=== PATIENT | male | born 1985 | race Hispanic/Latino ===

== ENCOUNTER 2018-07-24 21:59 | Emergency (ER) | payer OTHER, SELFPAY ==
[2018-07-24] MEDS ORDERED: KETOROLAC 30 MG/ML INJ ONE (22:57)
[2018-07-24] MEDS ORDERED: NA CHLORIDE 0.9% 1,000 ML ONE (22:57)
[2018-07-24 23:17] LABS: Absolute Lymphocytes (CBC) 4.2 K/uL (0.7-4.9); Absolute Neutrophil 7.5 K/uL (1.8-8.0); Basophils % 0.7 % (0-1.3); Eosinophils % 1.5 % (0-4.4); Hematocrit 45.8 % (39.6-49.0); Lymphocytes % 32.1 % (15.3-44.8); MCH 31.2 pg (27.0-35.0); MCV 93.6 fL (80-100); MPV 9.2 fL (7.6-11.3); RBC Red Blood Cell Count 4.89 M/uL (4.33-5.43)
[2018-07-24 23:17] LABS: Urine Blood TRACE (NEG); Urine Glucose NEGATIVE (NEG); Urine Protein NEGATIVE (NEG)
[2018-07-24 23:33] LABS: ALT/SGPT 48 U/L (12-78); AST/SGOT 21 U/L (15-37); Albumin 3.3 g/dL (3.4-5.0); Alkaline Phosphatase 103 U/L (45-117); Amylase Level 32 U/L (25-115); BUN Blood Urea Nitrogen 14 mg/dL (7-18); Bicarbonate 29 mmol/L (21-32); Bilirubin Direct < 0.1 mg/dL (0-0.2); Bilirubin Total 0.3 mg/dL (0.2-1.0); Glucose Level 103 mg/dL (74-106); Lipase 113 U/L (73-393); Potassium 3.7 mmol/L (3.5-5.1); Protein, Total 7.7 g/dL (6.4-8.2); Sodium Level 139 mmol/L (136-145)
[2018-07-25] MEDS ORDERED: PANTOPRAZOLE 40 MG INJ ONE (02:15)
--- NOTE | 2018-07-25 04:36 | ER ---
Nurse's Notes [facility] Name: Chai Hartley Age: 32 yrs Sex: Male : 1985 Arrival Date: 07/24/2018 Time: 22:05 Bed 19 Private MD: Diagnosis: Upper abdominal pain, unspecified Presentation: 07/24 22:18 Presenting complaint: Patient states: epigastric pain, intermittent since Wednesday, sr5 radiates around abdomen to back. Denies N/V/fever. Equal unlabored resp, skin warm/dry/nc. Denies PMH. LEFT BP 155/108, RIGHT BP 154/108. Transition of care: patient was not received from another setting of care. Onset of symptoms was July 22, 2018. Risk Assessment: Do you want to hurt yourself or someone else? Patient reports no desire to harm self or others. Initial Sepsis Screen: Does the patient meet any 2 criteria? No. Patient's initial sepsis screen is negative. Does the patient have a suspected source of infection? No. Patient's initial sepsis screen is negative. Care prior to arrival: reports taking several OTC meds. 22:18 Method Of Arrival: Ambulatory sr5 22:18 Acuity: MEDINA 3 sr5 Triage Assessment: 22:20 General: Appears uncomfortable, Behavior is calm, cooperative. Pain: Complains of pain sr5 in epigastric area Pain radiates to back, right upper quadrant and left upper quadrant. Neuro: No deficits noted. Cardiovascular: Capillary refill is brisk in bilateral fingers Patient's skin is warm and dry. Respiratory: Respiratory effort is even, unlabored, Respiratory pattern is regular, symmetrical. GI: Reports upper abdominal pain. Historical: - Allergies: 22:20 No Known Allergies; sr5 - Home Meds: 22:20 None [Active]; sr5 - PMHx: 22:20 None; sr5 - PSHx: 22:20 None; sr5 - Immunization history:: Adult Immunizations up to date. - Social history:: Smoking status: Patient uses tobacco products, denies chronic smoking, but will smoke occasionally. - Ebola Screening: : Patient negative for fever greater than or equal to 101.5 degrees Fahrenheit, and additional compatible Ebola Virus Disease symptoms. Screenin:11 Abuse screen: Denies threats or abuse. Denies injuries from another. Nutritional lp1 screening: No deficits noted. Tuberculosis screening: No symptoms or risk factors identified. Fall Risk None identified. Assessment: 22:30 General: Appears uncomfortable, Behavior is appropriate for age. Pain: Complains of lp1 pain in epigastric area Pain currently is 5 out of 10 on a pain scale. Quality of pain is described as sharp. Neuro: Level of Consciousness is awake, alert, obeys commands. Cardiovascular: Patient's skin is warm and dry. Respiratory: Respiratory effort is even, unlabored. GI: Abdomen is non-distended, Bowel sounds present X 4 quads. Abdomen is tender to palpation in epigastric area Reports upper abdominal pain. : Denies burning with urination. EENT: No signs and/or symptoms were reported regarding the EENT system. Derm: Skin is pink, warm \T\ dry. Musculoskeletal: Circulation, motion, and sensation intact. 23:30 Reassessment: Patient appears in no apparent distress at this time. Patient and/or lp1 family updated on plan of care and expected duration. Pain level reassessed. Patient is alert, oriented x 3, equal unlabored respirations, skin warm/dry/pink. 07/25 00:30 Reassessment: Patient appears in no apparent distress at this time. No changes from lp1 previously documented assessment. Patient and/or family updated on plan of care and expected duration. Pain level reassessed. 01:27 Reassessment: Patient appears in no apparent distress at this time. Patient is alert, lp1 oriented x 3, equal unlabored respirations, skin warm/dry/pink. Patient aware of waiting to be taken to CT. 02:16 Reassessment: patient states sharp pain to epigastric area at this time, provider lp1 notified; Patient aware of continuing to wait to be taken for CT of abdomen. 04:43 Reassessment: Patient appears in no apparent distress at this time. Patient is alert, lp1 oriented x 3, equal unlabored respirations, skin warm/dry/pink. Vital Signs: 07/24 22:20 BP 155 / 108; Pulse 67; Resp 14; Temp 98.8; Pulse Ox 98% on R/A; Weight 95.25 kg; sr5 Height 5 ft. 6 in. (167.64 cm); 23:00 BP 123 / 94; Pulse 69; Resp 16; Pulse Ox 96% on R/A; lp1 23:45 BP 136 / 92; Pulse 79; Resp 16; Pulse Ox 99% on R/A; lp1 07/25 01:00 BP 141 / 97; Pulse 66; Resp 16; Pulse Ox 97% on R/A; lp1 02:16 BP 114 / 69; Pulse 67; Resp 16; Pulse Ox 99% on R/A; lp1 04:43 BP 132 / 98; Pulse 76; Resp 16; Pulse Ox 99% on R/A; lp1 07/24 22:20 Body Mass Index 33.89 (95.25 kg, 167.64 cm) sr5 ED Course: 07/24 22:05 Patient arrived in ED. es 22:15 [facility] kb 22:15 Eugenio Diggs MD is Attending Physician. kb 22:20 Triage completed. sr5 22:20 Arm band placed on. sr5 22:45 Inserted saline lock: 20 gauge in right antecubital area, using aseptic technique. mw2 Blood collected. 22:51 Imelda Castro RN is Primary Nurse. lp1 23:12 Patient has correct armband on for positive identification. Placed in gown. Bed in low lp1 position. Pulse ox on. NIBP on. 23:46 US Abdomen Limited In Process Unspecified. EDMS 07/25 00:14 No provider procedures requiring assistance completed. lp1 03:[address] via wheelchair. lp1 03:31 CT completed. Patient tolerated procedure well. Patient moved back from CT. kw1 03:33 CT Abd/Pelvis - W/Contrast In Process Unspecified. EDMS 04:36 Tree Encinas MD is Referral Physician. rn 04:46 IV discontinued, No redness/swelling at site. Pressure dressing applied. lp1 Administered Medications: 07/24 22:58 Drug: NS 0.9% 1000 ml Route: IV; Rate: 1000 ml; Site: right antecubital; lp1 07/25 00:30 Follow up: IV Status: Completed infusion; IV Intake: 1000ml lp1 07/24 22:58 Drug: TORadol 30 mg Route: IVP; Site: right antecubital; lp1 23:30 Follow up: Response: No adverse reaction lp1 07/25 02:13 Drug: ProTONIX 40 mg Route: IVP; Site: right antecubital; lp1 04:47 Follow up: Response: No adverse reaction lp1 Intake: 00:30 IV: 1000ml; Total: 1000ml. lp1 Outcome: 04:36 Discharge ordered by . rn 04:46 Discharged to home ambulatory, with significant other. lp1 04:46 Condition: good 04:46 Discharge instructions given to patient, significant other, Instructed on discharge instructions, follow up and referral plans. medication usage, Demonstrated understanding of instructions, follow-up care, medications, Prescriptions given X 3. 04:47 Patient left the ED. lp1 Signatures: Dispatcher [employer] EDMS Sylvia Martins, FRUIT II FARMWORKER-C FRUIT II FARMWORKER-Ckb Karoline Bullard Roman, MD MD rn Pena, Laura RN RN lp1 Eliezer Alexander RN RN sr5 Lavern Castañeda 1 Karina Bernal 2
--- NOTE | 2018-07-25 04:36 | EDPHYS ---
Physician Documentation [facility] Name: Chai Hartley Age: 32 yrs Sex: Male : 1985 Arrival Date: 07/24/2018 Time: 22:05 Bed 19 Private MD: ED Physician Eugenio Diggs HPI: 07/24 23:11 This 32 yrs old Male presents to ER via Ambulatory with complaints of Abdominal Pain. kb 23:11 The patient presents with abdominal pain in the upper abdomen. Onset: The kb symptoms/episode began/occurred 3 day(s) ago. The symptoms radiate to right back. Associated signs and symptoms: none. The symptoms are described as intermittent. Modifying factors: The symptoms are alleviated by nothing, the symptoms are aggravated by food. Severity of pain: At its worst the pain was moderate in the emergency department the pain is unchanged. The patient has not experienced similar symptoms in the past. The patient has not recently seen a physician. Historical: - Allergies: 22:20 No Known Allergies; sr5 - Home Meds: 22:20 None [Active]; sr5 - PMHx: 22:20 None; sr5 - PSHx: 22:20 None; sr5 - Immunization history:: Adult Immunizations up to date. - Social history:: Smoking status: Patient uses tobacco products, denies chronic smoking, but will smoke occasionally. - Ebola Screening: : Patient negative for fever greater than or equal to 101.5 degrees Fahrenheit, and additional compatible Ebola Virus Disease symptoms. ROS: 23:11 Constitutional: Negative for fever, chills, and weight loss, ENT: Negative for injury, kb pain, and discharge, Neck: Negative for injury, pain, and swelling, Cardiovascular: Negative for chest pain, palpitations, and edema, Respiratory: Negative for shortness of breath, cough, wheezing, and pleuritic chest pain, Back: Negative for injury and pain, : Negative for injury, bleeding, discharge, and swelling, MS/Extremity: Negative for injury and deformity, Skin: Negative for injury, rash, and discoloration, Neuro: Negative for headache, weakness, numbness, tingling, and seizure. 23:11 Abdomen/GI: Positive for abdominal pain, Negative for nausea, vomiting, and diarrhea, constipation, abdominal cramps, abdominal distension, anorexia. Exam: 23:11 Constitutional: This is a well developed, well nourished patient who is awake, alert, kb and in no acute distress. Head/Face: Normocephalic, atraumatic. Chest/axilla: Normal chest wall appearance and motion. Nontender with no deformity. No lesions are appreciated. Cardiovascular: Regular rate and rhythm with a normal S1 and S2. No gallops, murmurs, or rubs. Normal PMI, no JVD. No pulse deficits. Respiratory: Lungs have equal breath sounds bilaterally, clear to auscultation and percussion. No rales, rhonchi or wheezes noted. No increased work of breathing, no retractions or nasal flaring. Back: No spinal tenderness. No costovertebral tenderness. Full range of motion. Skin: Warm, dry with normal turgor. Normal color with no rashes, no lesions, and no evidence of cellulitis. MS/ Extremity: Pulses equal, no cyanosis. Neurovascular intact. Full, normal range of motion. Neuro: Awake and alert, GCS 15, oriented to person, place, time, and situation. Cranial nerves II-XII grossly intact. Motor strength 5/5 in all extremities. Sensory grossly intact. Cerebellar exam normal. Normal gait. 23:11 Abdomen/GI: Inspection: abdomen appears normal, Bowel sounds: normal, in all quadrants, Palpation: soft, in all quadrants, moderate abdominal tenderness, in the right upper quadrant. Vital Signs: 22:20 BP 155 / 108; Pulse 67; Resp 14; Temp 98.8; Pulse Ox 98% on R/A; Weight 95.25 kg; sr5 Height 5 ft. 6 in. (167.64 cm); 23:00 BP 123 / 94; Pulse 69; Resp 16; Pulse Ox 96% on R/A; lp1 23:45 BP 136 / 92; Pulse 79; Resp 16; Pulse Ox 99% on R/A; lp1 07/25 01:00 BP 141 / 97; Pulse 66; Resp 16; Pulse Ox 97% on R/A; lp1 02:16 BP 114 / 69; Pulse 67; Resp 16; Pulse Ox 99% on R/A; lp1 04:43 BP 132 / 98; Pulse 76; Resp 16; Pulse Ox 99% on R/A; lp1 07/24 22:20 Body Mass Index 33.89 (95.25 kg, 167.64 cm) sr5 MDM: 07/24 22:15 Patient medically screened. kb 23:11 Data reviewed: vital signs, nurses notes. Data interpreted: Pulse oximetry: on room air kb is 96 %. Interpretation: normal. 07/25 01:58 Counseling: I had a detailed discussion with the patient and/or guardian regarding: the kb historical points, exam findings, and any diagnostic results supporting the discharge/admit diagnosis, lab results, radiology results, the need for outpatient follow up, a family practitioner, to return to the emergency department if symptoms worsen or persist or if there are any questions or concerns that arise at home. 07/24 22:28 Order name: Amylase, Serum; Complete Time: 23:33 kb 07/24 22:28 Order name: Basic Metabolic Panel; Complete Time: 23:33 kb 07/24 22:28 Order name: CBC with Diff; Complete Time: 23:23 kb 07/24 22:28 Order name: Hepatic Function; Complete Time: 23:33 kb 07/24 22:28 Order name: Lipase; Complete Time: 23:33 kb 07/24 22:59 Order name: Urine Dipstick--Ancillary (enter results) mt 07/24 22:28 Order name: IV Saline Lock; Complete Time: 22:53 kb 07/24 22:28 Order name: Labs collected and sent; Complete Time: 22:53 kb 07/24 22:28 Order name: US Abdomen Limited 07/24 23:00 Order name: Urine Dipstick-Ancillary; Complete Time: 23:18 EDMS 07/25 00:13 Order name: CT Abd/Pelvis - W/Contrast 07/24 22:28 Order name: Urine Dipstick-Ancillary (obtain specimen); Complete Time: 22:53 kb Administered Medications: 07/24 22:58 Drug: NS 0.9% 1000 ml Route: IV; Rate: 1000 ml; Site: right antecubital; lp1 07/25 00:30 Follow up: IV Status: Completed infusion; IV Intake: 1000ml [facility] 07/24 22:58 Drug: TORadol 30 mg Route: IVP; Site: right antecubital; lp1 23:30 Follow up: Response: No adverse reaction 1 07/25 02:13 Drug: ProTONIX 40 mg Route: IVP; Site: right antecubital; lp1 04:47 Follow up: Response: No adverse reaction lp1 Disposition: 04:34 Co-signature as Attending Physician, Eugenio Diggs MD. rn 04:[address] scan results with patient and , likely combination of fatty rn liver/gastritis/possible pancreatitis although lipase normal, gallbladder u/s normal. REcommend f/u with GI, antacids, liquid diet, and return precautions given and understood.. Disposition: 07/25/18 04:36 Discharged to Home. Impression: Upper abdominal pain, unspecified. - Condition is Stable. - Discharge Instructions: Abdominal Pain, Adult, [id number]. - Prescriptions for Bentyl 20 mg Oral Tablet - take 1 tablet by ORAL route every 6 hours As needed; 20 tablet. Zofran 4 mg Oral Tablet - take 1 tablet by ORAL route every 8 hours As needed; 20 tablet. Tylenol- Codeine #3 300-30 mg Oral Tablet - take 1 tablet by ORAL route every 6 hours As needed; 15 tablet. - Medication Reconciliation Form, Thank You Letter, Antibiotic Education, Prescription Opioid Use form. - Follow up: Emergency Department; When: As needed; Reason: Worsening of condition. Follow up: Tree Encinas MD; When: 5 - 6 days; Reason: Recheck today's complaints, Re-evaluation by your physician. Signatures: Dispatcher [employer] EDMS Sylvia Martins, TUFT MACHINE OPERATOR-C TUFT MACHINE OPERATOR-Ckb Eugenio Diggs MD MD rn Pena, Laura, RN RN lp1 Resecker, Eliezer RN RN sr5 Corrections: (The following items were deleted from the chart) 04:47 04:36 07/25/2018 04:36 Discharged to Home. Impression: Upper abdominal pain, lp1 unspecified. Condition is Stable. Discharge Instructions: Abdominal Pain, Adult, Tare-ee-Rldy. Prescriptions for Bentyl 20 mg Oral Tablet - take 1 tablet by ORAL route every 6 hours As needed; 20 tablet, Zofran 4 mg Oral Tablet - take 1 tablet by ORAL route every 6 hours As needed; 20 tablet. and Forms are Medication Reconciliation Form, Thank You Letter, Antibiotic Education, Prescription Opioid Use. Follow up: Emergency Department; When: As needed; Reason: Worsening of condition. Follow up: Tree Encinas; When: 5 - 6 days; Reason: Recheck today's complaints, Re-evaluation by your physician. rn
--- NOTE | 2018-07-25 06:48 | RAD REPORT ---
EXAM DESCRIPTION: US - Abdomen Exam Limited - 07/24/2018 11:46 pm CLINICAL HISTORY: Abdominal pain, right upper quadrant pain COMPARISON: None. FINDINGS: No gallstones, sludge or other abnormalities within the gallbladder lumen. There is no wal l thickening or pericholecystic fluid. Gallbladder is partially contracted which accentuates wall thi ckness. No common duct stone or biliary tree dilatation identified. IMPRESSION: Normal gallbladder and biliary tree ultrasound.
--- NOTE | 2018-07-25 08:44 | RAD REPORT ---
EXAM DESCRIPTION: CT - Abdomen Pelvis W Contrast - 07/25/2018 5:44 am CLINICAL HISTORY: Abdominal pain, epigastric pain A preliminary report was provided at the time of the study and reviewed prior to final report. COMPARISON: None. TECHNIQUE: Biphasic, helical CT imaging of the abdomen and pelvis was performed following 100 ml non -ionic IV contrast. Oral contrast was given. All CT scans are performed using dose optimization technique as appropriate and may include automated exposure control or mA/KV adjustment according to patient size. FINDINGS: No suspicious findings in the lung bases. Liver size is normal. There is a benign-appearing calcification in the inferolateral right lobe. In t he central and superior right upper lobe there are geographic areas of decreased attenuation. No disp lacement of vasculature. This is most likely a geographic fatty infiltration of the liver. No acute s plenic finding. Small accessory splenic nodule is present. No focal pancreatic solid or cystic mass i dentifiable. There is questionable or faint congestion or edema near the pancreatic head. This is a s ubtle finding but could indicate a mild pancreatitis if there are matching clinical or laboratory fin dings. A few small sub centimeter lymph nodes are seen adjacent to the pancreas. . Gallbladder and bi liary tree are also without suspicious finding. Symmetric renal function is seen with no hydronephrosis or suspicious renal mass. No pyelonephritis o r acute renal parenchymal process. No dilated bowel loops or bowel wall thickening. No free air, free fluid or inflammatory stranding. No hernia, mass or bulky lymphadenopathy. The urinary bladder is without significant finding. No adr enal abnormality. No suspicious bony findings. L5 pars interarticularis defects are present without L5 subluxation. IMPRESSION: Trace amount of congestion or edema adjacent to the head of the pancreas. This is a subt le finding but could indicate mild pancreatitis if there are any matching clinical or laboratory find ings. Geographic fatty infiltration of the liver. 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
== END 2018-07-25 04:47 | disposition home or self-care (01) ==
LOC: ER 21:59
DX: R10.10 Upper abdominal pain, unspecified (principal); Z72.0 Tobacco use
CPT/HCPCS: 36415; 74177; 76705; 80048; 80076; 81003; 82150; 83690; 85025; 96361; 96374; 96375; 99284; C9113; J7030; Q9967

== ENCOUNTER 2019-06-06 21:34 | Emergency (ER) | payer OTHER ==
[2019-06-06 23:04] LABS: Absolute Lymphocytes (CBC) 3.8 K/uL (0.7-4.9); Basophils % 0.7 % (0-1.3); Eosinophils % 1.6 % (0-4.4); MPV 9.8 fL (7.6-11.3); Monocytes % 7.8 % (3.3-12.3); RBC Red Blood Cell Count 5.24 M/uL (4.33-5.43)
[2019-06-06] MEDS ORDERED: MAGNE/ALUM HYDROXD 30 ML UCUP ONE (23:09)
[2019-06-06] MEDS ORDERED: ONDANSETRON 4 MG/2 ML VIAL ONE (23:10)
[2019-06-06] MEDS ORDERED: LIDOCAINE VISCOUS 2% SOLN 15 ML UDC ONE (23:10)
[2019-06-06] MEDS ORDERED: NA CHLORIDE 0.9% 1,000 ML ONE (23:10)
[2019-06-07] MEDS ORDERED: MEPERIDINE HCL 25 MG/0.5 ML ONE (02:03)
[2019-06-07] MEDS ORDERED: FAMOTIDINE 20 MG/2 ML VIAL IV ONE (02:03)
--- NOTE | 2019-06-07 03:43 | ER ---
Nurse's Notes [facility] Name: Chai Hartley Age: 33 yrs Sex: Male : 1985 Arrival Date: 06/06/2019 Time: 21:37 Bed 17 Private MD: Diagnosis: Upper abdominal pain, unspecified;Gastritis, unspecified Presentation: 06/06 21:53 Presenting complaint: Patient states: epigastric pain with nausea. pt seen same time ak1 last year with same s/s dx"something with my liver and pancreas." pt took tylenol #3 at 1945. Transition of care: patient was not received from another setting of care. Onset of symptoms was June 06, 2019. Risk Assessment: Do you want to hurt yourself or someone else? Patient reports no desire to harm self or others. Initial Sepsis Screen: Does the patient meet any 2 criteria? No. Patient's initial sepsis screen is negative. Does the patient have a suspected source of infection? No. Patient's initial sepsis screen is negative. Care prior to arrival: None. 21:53 Method Of Arrival: Ambulatory ak1 21:53 Acuity: MEDINA 3 ak1 Triage Assessment: 21:55 General: Appears in no apparent distress. Behavior is cooperative, anxious. Pain: ak1 Complains of pain in epigastric area. EENT: No signs and/or symptoms were reported regarding the EENT system. Neuro: No deficits noted. Cardiovascular: No deficits noted. Respiratory: No deficits noted. GI: Abdomen is round non-distended, Reports upper abdominal pain, nausea. : No signs and/or symptoms were reported regarding the genitourinary system. Derm: No signs and/or symptoms reported regarding the dermatologic system. Musculoskeletal: No signs and/or symptoms reported regarding the musculoskeletal system. Historical: - Allergies: 21:55 No Known Allergies; ak1 - Home Meds: 21:55 None [Active]; ak1 - PMHx: 21:55 None; ak1 - PSHx: 21:55 None; ak1 - Immunization history:: Adult Immunizations unknown. - Social history:: Smoking status: Patient uses tobacco products, smokes one pack cigarettes per day. - Ebola Screening: : No symptoms or risks identified at this time. - Family history:: not pertinent. - Hospitalizations: : No recent hospitalization is reported. Screenin:10 Abuse screen: Denies threats or abuse. Denies injuries from another. Nutritional aa1 screening: No deficits noted. Tuberculosis screening: No symptoms or risk factors identified. Fall Risk None identified. Assessment: 22:10 General: Appears in no apparent distress. comfortable, Behavior is calm, cooperative, aa1 appropriate for age. Pain: Complains of pain in epigastric area Pain currently is 8 out of 10 on a pain scale. Neuro: Level of Consciousness is awake, alert, obeys commands, Oriented to person, place, time, situation, Moves all extremities. Full function Gait is Speech is normal. Cardiovascular: Denies chest pain, palpitations, shortness of breath. Respiratory: Airway is patent Respiratory effort is even, unlabored, Respiratory pattern is regular, symmetrical. GI: Abdomen is non-distended, Bowel sounds present X 4 quads. Abd is soft X 4 quads Abdomen is tender to palpation in epigastric area, right upper quadrant and left upper quadrant Reports upper abdominal pain, epigastric pain, nausea. : No signs and/or symptoms were reported regarding the genitourinary system. EENT: No signs and/or symptoms were reported regarding the EENT system. Derm: Skin is intact, is healthy with good turgor, Skin is pink, warm \\T\\ dry. Musculoskeletal: Circulation, motion, and sensation intact. Capillary refill < 3 seconds. 23:18 Reassessment: Patient appears in no apparent distress at this time. Patient and/or aa1 family updated on plan of care and expected duration. Pain level reassessed. Patient is alert, oriented x 3, equal unlabored respirations, skin warm/dry/pink. Awaiting lab results and CT scan. 06/07 00:00 Reassessment: Patient appears in no apparent distress at this time. Patient and/or aa1 family updated on plan of care and expected duration. Pain level reassessed. Patient is alert, oriented x 3, equal unlabored respirations, skin warm/dry/pink. Awaiting CT results. 01:00 Reassessment: Patient appears in no apparent distress at this time. Patient and/or aa1 family updated on plan of care and expected duration. Pain level reassessed. Patient is alert, oriented x 3, equal unlabored respirations, skin warm/dry/pink. Awaiting CT results. 02:10 Reassessment: Patient appears in no apparent distress at this time. Patient is alert, aa1 oriented x 3, equal unlabored respirations, skin warm/dry/pink. Discussed d/c \\T\\ f/u instructions with pt; denies questions or concerns at this time. Amb to lobby with steady gait Patient states feeling better. Patient states symptoms have improved. Vital Signs: 06/06 21:55 BP 154 / 105; Pulse 74; Resp 18; Temp 98; Pulse Ox 99% on R/A; Weight 99.79 kg (R); ak1 Height 5 ft. 7 in. (170.18 cm); Pain 8/10; 23:00 BP 140 / 97; Pulse 76; Resp 16; Pulse Ox 100% on R/A; Pain 8/10; aa1 06/07 02:00 BP 134 / 87; Pulse 69; Resp 16; Temp 98.2; Pulse Ox 98% on R/A; Pain 2/10; aa1 06/06 21:55 Body Mass Index 34.46 (99.79 kg, 170.18 cm) ak1 ED Course: 06/06 21:37 Patient arrived in ED. ds1 21:54 Triage completed. ak1 21:55 Arm band placed on Patient placed in an exam room, on a stretcher, on pulse oximetry, ak1 Patient notified of wait time. 22:02 Eugenio Diggs MD is Attending Physician. rn 22:10 Patient has correct armband on for positive identification. Placed in gown. Bed in low aa1 position. Call light in reach. Pulse ox on. NIBP on. Warm blanket given. 22:11 Oral contrast given. sj 22:44 Inserted saline lock: 22 gauge in right antecubital area, using aseptic technique. cm6 22:49 Jodee Rajan, CARMELO is Primary Nurse. aa1 06/07 01:32 Tree Encinas MD is Referral Physician. rn 02:10 No provider procedures requiring assistance completed. IV discontinued, intact, aa1 bleeding controlled, No redness/swelling at site. Pressure dressing applied. 06:22 CT Abd/Pelvis - PO and IV Contrast In Process Unspecified. EDMS Administered Medications: 06/06 23:06 Drug: Zofran 4 mg Route: IVP; Site: right antecubital; aa1 06/07 00:05 Follow up: Response: No adverse reaction; Nausea is decreased aa1 06/06 23:06 Drug: NS 0.9% 1000 ml Route: IV; Rate: 1000 ml; Site: right antecubital; aa1 06/07 01:00 Follow up: IV Status: Completed infusion; IV Intake: 1000ml aa1 06/06 23:06 Drug: GI Cocktail without - (Maalox Suspension 30 ml, Lidocaine Liquid 2 % 15 aa1 ml) Route: PO; 06/07 00:05 Follow up: Response: No adverse reaction; Pain is decreased aa1 01:55 Drug: Demerol 25 mg Route: IVP; Site: right antecubital; aa1 02:09 Follow up: Response: No adverse reaction; Medication administered at discharge. aa1 01:55 Drug: Pepcid 20 mg Route: IVP; Site: right antecubital; aa1 02:08 Follow up: Response: No adverse reaction; Medication administered at discharge. aa1 Intake: 01:00 IV: 1000ml; Total: 1000ml. aa1 Outcome: 01:32 Discharge ordered by . rn 02:10 Discharged to home ambulatory, with significant other. aa1 02:10 Condition: good 02:10 Discharge instructions given to patient, significant other, Instructed on discharge instructions, follow up and referral plans. medication usage, Demonstrated understanding of instructions, follow-up care, medications, Prescriptions given X 3. 02:11 Patient left the ED. aa1 Signatures: Dispatcher [employer] EDMS Jodee Rajan RN RN aa1 Nae Farris Demi ds1 Eugenio Diggs MD MD rn Krenek, Amber, RN RN ak1 Mack, Candace cm6
--- NOTE | 2019-06-07 03:43 | EDPHYS ---
Physician Documentation [facility] Name: Chai Hartley Age: 33 yrs Sex: Male : 1985 Arrival Date: 06/06/2019 Time: 21:37 Bed 17 Private MD: ED Physician Eugenio Diggs HPI: 06/06 22:50 This 33 yrs old Male presents to ER via Ambulatory with complaints of rn Abdominal Pain. 22:50 The patient presents with abdominal pain in the epigastric area. Onset: The rn symptoms/episode began/occurred today. The symptoms do not radiate. Associated signs and symptoms: Pertinent negatives: anorexia, blood in stools, fever, shortness of breath, testicular pain, vomiting, vomiting blood. The symptoms are described as achy, sharp. Modifying factors: The symptoms are alleviated by nothing, the symptoms are aggravated by spicy food. Severity of pain: At its worst the pain was moderate in the emergency department the pain has improved. The patient has experienced a previous episode. The patient has not recently seen a physician. Historical: - Allergies: 21:55 No Known Allergies; ak1 - Home Meds: 21:55 None [Active]; ak1 - PMHx: 21:55 None; ak1 - PSHx: 21:55 None; ak1 - Immunization history:: Adult Immunizations unknown. - Social history:: Smoking status: Patient uses tobacco products, smokes one pack cigarettes per day. - Ebola Screening: : No symptoms or risks identified at this time. - Family history:: not pertinent. - Hospitalizations: : No recent hospitalization is reported. ROS: 22:50 Constitutional: Negative for fever, chills, and weight loss, Eyes: Negative for injury, rn pain, redness, and discharge, Neck: Negative for injury, pain, and swelling, Cardiovascular: Negative for chest pain, palpitations, and edema, Respiratory: Negative for shortness of breath, cough, wheezing, and pleuritic chest pain, Abdomen/GI: + abd pain Back: Negative for injury and pain, MS/Extremity: Negative for injury and deformity, Skin: Negative for injury, rash, and discoloration, Neuro: Negative for headache, weakness, numbness, tingling, and seizure. Exam: 22:50 Constitutional: This is a well developed, well nourished patient who is awake, alert, rn and in no acute distress. Head/Face: Normocephalic, atraumatic. Eyes: Pupils equal round and reactive to light, extra-ocular motions intact. Lids and lashes normal. Conjunctiva and sclera are non-icteric and not injected. Cornea within normal limits. Periorbital areas with no swelling, redness, or edema. ENT: MMM Abdomen/GI: soft, + tenderness epigastric region, no rebound Skin: Warm, dry with normal turgor. Normal color with no rashes, no lesions, and no evidence of cellulitis. MS/ Extremity: Pulses equal, no cyanosis. Neurovascular intact. Full, normal range of motion. Equal circumference. Neuro: Awake and alert, GCS 15, oriented to person, place, time, and situation. Cranial nerves II-XII grossly intact. Motor strength 5/5 in all extremities. Sensory grossly intact. Cerebellar exam normal. Vital Signs: 21:55 BP 154 / 105; Pulse 74; Resp 18; Temp 98; Pulse Ox 99% on R/A; Weight 99.79 kg (R); ak1 Height 5 ft. 7 in. (170.18 cm); Pain 8/10; 23:00 BP 140 / 97; Pulse 76; Resp 16; Pulse Ox 100% on R/A; Pain 8/10; aa1 06/07 02:00 BP 134 / 87; Pulse 69; Resp 16; Temp 98.2; Pulse Ox 98% on R/A; Pain 2/10; aa1 06/06 21:55 Body Mass Index 34.46 (99.79 kg, 170.18 cm) [facility] MDM: 06/06 22:02 Patient medically screened. rn 06/07 01:31 Differential diagnosis: gastritis, gastroesophageal reflux disease, pancreatitis, rn Peptic Ulcer Disease. Data reviewed: vital signs, nurses notes, lab test result(s), radiologic studies, CT scan, and as a result, I will discharge patient. Counseling: I had a detailed discussion with the patient and/or guardian regarding: the historical points, exam findings, and any diagnostic results supporting the discharge/admit diagnosis, lab results, radiology results, the need for outpatient follow up, to return to the emergency department if symptoms worsen or persist or if there are any questions or concerns that arise at home. Response to treatment: the patient's symptoms have mildly improved after treatment, and as a result, I will discharge patient. Special discussion: Based on the patient's Hx, exam, and Dx evaluation, there is no indication for emergent surgery or inpatient Tx. It is understood by the patient/guardian that if the Sx's persist or worsen they need to return immediately for re-evaluation. I discussed with the patient/guardian in detail that at this point there is no indication for admission to the hospital. It is understood, however, that if the symptoms persist or worsen the patient needs to return immediately for re-evaluation. Based on the history and exam findings, there is no indication for further emergent testing or inpatient evaluation. 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 06/06 22:03 Order name: Basic Metabolic Panel rn 06/06 22:03 Order name: CBC with Diff; Complete Time: 23:54 rn 06/06 22:03 Order name: Creatinine for civil attorney 06/06 22:03 Order name: Hepatic Function rn 06/06 22:03 Order name: Lipase rn 06/06 22:03 Order name: CT Abd/Pelvis - PO and IV Contrast rn 06/06 22:03 Order name: IV Saline Lock; Complete Time: 22:50 rn 06/06 22:03 Order name: Labs collected and sent; Complete Time: 22:50 rn 06/06 23:10 Order name: Labs - recollect needed; Complete Time: 23:43 mw2 Administered Medications: 06/06 23:06 Drug: Zofran 4 mg Route: IVP; Site: right antecubital; aa1 06/07 00:05 Follow up: Response: No adverse reaction; Nausea is decreased aa1 06/06 23:06 Drug: NS 0.9% 1000 ml Route: IV; Rate: 1000 ml; Site: right antecubital; aa1 06/07 01:00 Follow up: IV Status: Completed infusion; IV Intake: 1000ml aa1 06/06 23:06 Drug: GI Cocktail without - (Maalox Suspension 30 ml, Lidocaine Liquid 2 % 15 aa1 ml) Route: PO; 06/07 00:05 Follow up: Response: No adverse reaction; Pain is decreased aa1 01:55 Drug: Demerol 25 mg Route: IVP; Site: right antecubital; aa1 02:09 Follow up: Response: No adverse reaction; Medication administered at discharge. aa1 01:55 Drug: Pepcid 20 mg Route: IVP; Site: right antecubital; aa1 02:08 Follow up: Response: No adverse reaction; Medication administered at discharge. aa1 Disposition: 06/07/19 01:32 Discharged to Home. Impression: Upper abdominal pain, unspecified, Gastritis, unspecified. - Condition is Stable. - Discharge Instructions: Abdominal Pain, Adult, Gastritis, Adult. - Prescriptions for Bentyl 20 mg Oral Tablet - take 1 tablet by ORAL route every 6 hours As needed; 20 tablet. Ultram 50 mg Oral Tablet - take 1 tablet by ORAL route every 6 hours As needed; 15 tablet. Zantac 300 mg Oral Tablet - take 1 tablet by ORAL route At bedtime; 30 tablet. - Medication Reconciliation Form, Thank You Letter, Antibiotic Education, Prescription Opioid Use form. - Follow up: Tree Encinas MD; When: As needed; Reason: Recheck today's complaints, Re-evaluation by your physician. - Problem is new. - Symptoms have improved. Signatures: Dispatcher [employer] EDMS Jodee Rajan RN RN aa1 Eugenio Diggs MD MD rn Krenek, Amber RN RN ak1 Karina Bernal mw2 Corrections: (The following items were deleted from the chart) 02:11 01:32 06/07/2019 01:32 Discharged to Home. Impression: Upper abdominal pain, aa1 unspecified; Gastritis, unspecified. Condition is Stable. Forms are Medication Reconciliation Form, Thank You Letter, Antibiotic Education, Prescription Opioid Use. Follow up: Tree Encinas; When: As needed; Reason: Recheck today's complaints, Re-evaluation by your physician. Problem is new. Symptoms have improved. rn
[2019-06-07 04:03] LABS: ALT/SGPT 115 U/L (12-78); AST/SGOT 31 U/L (15-37); Albumin 3.5 g/dL (3.4-5.0); Alkaline Phosphatase 85 U/L (45-117); BUN Blood Urea Nitrogen 11 mg/dL (7-18); Bicarbonate 30 mmol/L (21-32); Bilirubin Direct 0.1 mg/dL (0-0.2); Bilirubin Total 0.5 mg/dL (0.2-1.0); Glucose Level 105 mg/dL (74-106); Lipase 118 U/L (73-393); Potassium 4.3 mmol/L (3.5-5.1); Protein, Total 7.4 g/dL (6.4-8.2); Sodium Level 139 mmol/L (136-145)
--- NOTE | 2019-06-07 10:27 | RAD REPORT ---
EXAM DESCRIPTION: Abdomen Pelvis W Contrast CLINICAL HISTORY: 33 years Male ABD PAIN TECHNIQUE: Contiguous axial images obtained through the abdomen and pelvis following oral and IV con trast administration. Coronal and sagittal reformatted images provided. This CT exam was performed according to our departmental dose-optimization program, which includes on e or more of the following dose reduction techniques: automated exposure control, adjustment of the m A and/or kV according to patient size, and/or use of iterative reconstruction technique. COMPARISON: No prior exams provided for comparison. FINDINGS: There are no acute lower rib, lumbar, or pelvic fractures. There is chronic bilateral sp ondylolysis at L5. No aggressive osseous lesion. Minimal bibasilar atelectasis. Geographic fatty infiltration of the liver, which is mildly enlarged. No other hepatic lesion. No lac eration. The biliary tree, gallbladder, pancreas, spleen, adrenal glands, kidneys, and urinary bladder demonst rate no acute findings. There is no retroperitoneal hemorrhage, free intraperitoneal air, or ascites. The abdominal aorta a nd its branches are normal. There is no bowel obstruction or wall thickening. IMPRESSION: No acute abdominal or pelvic injury. 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 Geographic fatty infiltration of the liver, which is mildly enlarged. Electronically signed by: María Elena Dhaliwal MD 06/07/2019 1:15 AM CDT Due to temporary technical issues with the PACS/Fluency reporting system, reports are being signed by the in house radiologist as a courtesy to ensure prompt reporting. The interpreting radiologist is f ully responsible for the content of the report.
== END 2019-06-07 02:11 | disposition home or self-care (01) ==
LOC: ER 21:34
DX: K29.70 Gastritis, unspecified, without bleeding (principal); F17.210 Nicotine dependence, cigarettes, uncomplicated
CPT/HCPCS: 36415; 74177; 80048; 80076; 83690; 85025; 96361; 96374; 96375; 99284; J2175; J2405; J7030

== ENCOUNTER 2020-01-22 21:09 | Inpatient (IN) | payer OTHER ==
[2020-01-22] MEDS ORDERED: NA CHLORIDE 0.9% 2,000 ML ONE (21:44)
[2020-01-22] MEDS ORDERED: NA CHLORIDE 0.9% 1,000 ML ONE (22:16)
[2020-01-22] MEDS ORDERED: MORPHINE 4 MG/ML SYR ONE (22:19)
[2020-01-22] MEDS ORDERED: ONDANSETRON 4 MG/2 ML VIAL ONE (22:19)
[2020-01-22 22:26] LABS: ALT/SGPT 81 U/L (12-78); AST/SGOT 25 U/L (15-37); Albumin 3.7 g/dL (3.4-5.0); Alkaline Phosphatase 89 U/L (45-117); BUN Blood Urea Nitrogen 11 mg/dL (7-18); Bicarbonate 27 mmol/L (21-32); Bilirubin Direct 0.1 mg/dL (0-0.2); Bilirubin Total 0.4 mg/dL (0.2-1.0); Glucose Level 98 mg/dL (74-106); Lipase 219 U/L (73-393); Potassium 3.8 mmol/L (3.5-5.1); Protein, Total 8.5 g/dL (6.4-8.2); Sodium Level 136 mmol/L (136-145)
[2020-01-22 22:32] LABS: Absolute Lymphocytes (CBC) 4.9 K/uL (0.7-4.9); Basophils % 0.5 % (0-1.3); Hematocrit 50.5 % (39.6-49.0); Lymphocytes % 28.8 % (15.3-44.8); MPV 9.8 fL (7.6-11.3); RBC Red Blood Cell Count 5.47 M/uL (4.33-5.43)
--- NOTE | 2020-01-22 22:58 | RAD REPORT ---
EXAM DESCRIPTION: US - Abdomen Exam Limited - 01/22/2020 10:33 pm CLINICAL HISTORY: ABD PAIN COMPARISON: Abdomen Exam Limited dated 07/24/2018 FINDINGS: The gallbladder demonstrates no gallstones. No pericholecystic fluid or gallbladder wall t hickening. The common bile duct is normal measuring 4 mm. The liver demonstrates no findings of intrahepatic biliary dilatation. IMPRESSION: Unremarkable examination.
[2020-01-22 23:36] LABS: Urine Blood TRACE (NEG); Urine Glucose NEGATIVE (NEG); Urine Protein NEGATIVE (NEG); Urine Specific Gravity >1.030 (1.005-1.030)
--- NOTE | 2020-01-23 00:30 | ER ---
Nurse's Notes [facility] Name: Chai Hartley Age: 34 yrs Sex: Male : 1985 Arrival Date: 01/22/2020 Time: 21:18 Bed 6 Private MD: Diagnosis: Acute pancreatitis;Abdominal tenderness Presentation: 01/22 21:20 Presenting complaint: Patient states: Reports epigastric paint that began this morning, sg reports having hx of pancreatitis, concerned because the pain has never been in the lower back like today, reports having nausea. Transition of care: patient was not received from another setting of care. Onset of symptoms was January 22, 2020. Risk Assessment: Do you want to hurt yourself or someone else? Patient reports no desire to harm self or others. Initial Sepsis Screen: Does the patient meet any 2 criteria? No. Patient's initial sepsis screen is negative. Does the patient have a suspected source of infection? No. Patient's initial sepsis screen is negative. Care prior to arrival: None. 21:20 Method Of Arrival: Ambulatory sg 21:20 Acuity: MEDINA 3 sg Historical: - Allergies: 21:22 No Known Allergies; sg - Home Meds: 21:22 None [Active]; sg - PMHx: 21:22 Pancreatitis; sg - PSHx: 21:22 None; sg - Immunization history:: Adult Immunizations up to date. - Coronavirus screen:: The patient has NOT traveled to [place] in the past 14 days. The patient has NOT had contact with known/suspected case of Coronavirus?. - Social history:: Smoking status: Patient denies any tobacco usage or history of. - Ebola Screening: : Patient negative for fever greater than or equal to 101.5 degrees Fahrenheit, and additional compatible Ebola Virus Disease symptoms Patient denies exposure to infectious person Patient denies travel to an Ebola-affected area in the 21 days before illness onset No symptoms or risks identified at this time. Screenin:34 Abuse screen: Denies threats or abuse. Denies injuries from another. Nutritional ca1 screening: No deficits noted. Tuberculosis screening: No symptoms or risk factors identified. Fall Risk IV access (20 points). Assessment: 21:34 General: Appears in no apparent distress. comfortable, Behavior is calm, cooperative, ca1 appropriate for age. Pain: Complains of pain in right upper quadrant and left upper quadrant Pain radiates to mid back area and left mid back Pain currently is 8 out of 10 on a pain scale. Quality of pain is described as sharp, Pain began TODAY. Neuro: Level of Consciousness is awake, alert, obeys commands, Oriented to person, place, time, situation, Appropriate for age. Cardiovascular: Heart tones S1 S2 present Capillary refill < 3 seconds Patient's skin is warm and dry. Respiratory: Airway is patent Respiratory effort is even, unlabored, Respiratory pattern is regular, symmetrical. GI: Abdomen is round non-distended, Bowel sounds present X 4 quads. Abd is soft X 4 quads Abdomen is tender to palpation in right upper quadrant and left upper quadrant Patient currently denies nausea. : No signs and/or symptoms were reported regarding the genitourinary system. EENT: No signs and/or symptoms were reported regarding the EENT system. Derm: Skin is intact, is healthy with good turgor, Skin is pink, warm \T\ dry. Musculoskeletal: Circulation, motion, and sensation intact. Capillary refill < 3 seconds. 22:46 Reassessment: Patient appears in no apparent distress at this time. Patient and/or rv family updated on plan of care and expected duration. Pain level reassessed. Patient is alert, oriented x 3, equal unlabored respirations, skin warm/dry/pink. pain is resolving, 5/10 after medication. 01/23 01:21 Reassessment: Patient appears in no apparent distress at this time. PATIENT COMPLAINED rv AGAIN OF INCREASE IN PAIN. MEDICATION GIVEN ORDERED. UPDATED ON THE PLAN OF ADMISSION. Vital Signs: 01/22 21:21 BP 144 / 108; Pulse 73; Resp 18; Temp 98.1; Pulse Ox 100% on R/A; Weight 99.79 kg (R); sg Height 5 ft. 7 in. (170.18 cm) (R); Pain 10/10; 22:18 BP 141 / 89; Pulse 73; Resp 17; Pulse Ox 99% on R/A; Pain 8/10; rv 22:47 BP 132 / 97; Pulse 66; Resp 16; Pulse Ox 97% on R/A; Pain 5/10; rv 22:49 Pain 5/10; rv 23:30 BP 122 / 87; Pulse 66; Resp 16; Pulse Ox 99% on R/A; Pain 4/10; rv 01/23 01:20 BP 119 / 80; Pulse 75; Resp 16; Pulse Ox 96% on R/A; rv 01:44 Pain 0/10; rv 01:57 BP 114 / 80; Pulse 76; Resp 16; Temp 98; Pulse Ox 98% on R/A; Pain 0/10; rv 01/22 21:21 Body Mass Index 34.46 (99.79 kg, 170.18 cm) ED Course: 01/22 21:18 Patient arrived in ED. jg7 21:20 Arm band placed on. sg 21:21 Triage completed. sg 21:28 Pankaj Lua MD is Attending Physician. ingrid 21:34 Patient has correct armband on for positive identification. Placed in gown. Bed in low ca1 position. Call light in reach. Side rails up X2. Pulse ox on. NIBP on. Warm blanket given. 21:34 No provider procedures requiring assistance completed. Initial lab(s) drawn, by ia, ca1 sent to lab. Inserted saline lock: 20 gauge in right antecubital area, using aseptic technique. Blood collected. 22:09 James Vasquez, RN is Primary Nurse. rv 23:34 Patient moved back from CT. 01/23 00:07 CT Abd/Pelvis - IV Contrast Only In Process Unspecified. EDMS 00:27 Marino Mendosa MD is Hospitalizing Provider. ingrid 01:58 Patient admitted, IV remains in place. PATENT AND INFUSING WELL. FLUSHING DONE WITHOUT rv RESISTANCE. NO SIGNS OF INFILTRATION. Administered Medications: 01/22 21:43 Drug: NS 0.9% 1000 ml Route: IV; Rate: 1 bolus; Site: right antecubital; ca1 22:49 Follow up: IV Status: Completed infusion; IV Intake: 1000ml rv 22:12 Drug: NS 0.9% 1000 ml Route: IV; Rate: 1 bolus; Site: right antecubital; rv 22:49 Follow up: IV Status: Completed infusion; IV Intake: 1000ml rv 22:13 Drug: NS 0.9% 1000 ml Route: IV; Rate: 125 ml/hr; Site: right antecubital; rv 01/23 01:59 Follow up: IV Status: Completed infusion rv 01/22 22:17 Drug: morphine 4 mg {Note: RASS 0.} Route: IVP; Site: right antecubital; rv 22:49 Follow up: Pain 5/10 Adult; Response: No adverse reaction; Marked relief of symptoms; rv Pain is decreased; RASS: Alert and Calm (0) 22:17 Drug: Zofran 4 mg Route: IVP; Site: right antecubital; rv 22:49 Follow up: Response: No adverse reaction rv 01/23 00:32 Drug: NS 0.9% 1000 ml Route: IV; Rate: 1 bolus; Site: right antecubital; rv 01:19 Follow up: IV Status: Completed infusion; IV Intake: 1000ml rv 01:18 Drug: Zofran 4 mg Route: IVP; Site: right antecubital; rv 01:44 Follow up: Response: No adverse reaction rv :19 Drug: morphine 4 mg {Note: RASS 0.} Route: IVP; Site: right antecubital; rv :44 Follow up: Response: No adverse reaction; Marked relief of symptoms; Pain is decreased; rv RASS: Drowsy (-1) :44 Follow up: Pain 0/10 Adult rv Intake: 01/22 22:49 IV: 1000ml; Total: 1000ml. rv 22:49 IV: 1000ml; Total: 2000ml. rv 01/23 01:19 IV: 1000ml; Total: 3000ml. rv Outcome: 00:28 Decision to Hospitalize by Provider. ingrid 01:57 Admitted to Med/surg accompanied by tech, via wheelchair, room 213, with chart, Report rv called to GRACE RHODES 01:57 Condition: good 01:57 Discharge instructions given to patient, family, Instructed on the need for admit, Demonstrated understanding of instructions. 02:00 Patient left the ED. rv Signatures: Dispatcher [employer] EDMS David Olmstead RN RN sg Anderson, Corey, MD MD cha Vicente, Ronaldo, RN RN rv Acob, Cheryl, RN RN ca1 Gutierrez, Jessica jg7 Corrections: (The following items were deleted from the chart) 01:19 morphine 4 mg IVP in right antecubital rv rv
--- NOTE | 2020-01-23 00:31 | EDPHYS ---
Physician Documentation [facility] Name: Chai Hartley Age: 34 yrs Sex: Male : 1985 Arrival Date: 01/22/2020 Time: 21:18 Bed 6 Private MD: BELINDA Physician Pankaj Lua HPI: 01/22 22:02 This 34 yrs old Male presents to ER via Ambulatory with complaints of ingrid Abdominal Pain, Low Back Pain. 22:02 The patient presents with pain that is acute, with no known mechanism of injury. The ingrid symptoms are located in the low back. 22:02 The pain radiates to the low back area and left low back. The problem was sustained ingrid from unknown cause. Onset: The symptoms/episode began/occurred 2 day(s) ago. Modifying factors: The patient symptoms are alleviated by nothing, the patient symptoms are aggravated by any movement. Historical: - Allergies: 21:22 No Known Allergies; sg - Home Meds: 21:22 None [Active]; sg - PMHx: 21:22 Pancreatitis; sg - PSHx: 21:22 None; sg - Immunization history:: Adult Immunizations up to date. - Coronavirus screen:: The patient has NOT traveled to [place] in the past 14 days. The patient has NOT had contact with known/suspected case of Coronavirus?. - Social history:: Smoking status: Patient denies any tobacco usage or history of. - Ebola Screening: : Patient negative for fever greater than or equal to 101.5 degrees Fahrenheit, and additional compatible Ebola Virus Disease symptoms Patient denies exposure to infectious person Patient denies travel to an Ebola-affected area in the 21 days before illness onset No symptoms or risks identified at this time. ROS: 22:03 Constitutional: Negative for fever, chills, and weight loss, Eyes: Negative for injury, ingrid pain, redness, and discharge, ENT: Negative for injury, pain, and discharge, Neck: Negative for injury, pain, and swelling, Cardiovascular: Negative for chest pain, palpitations, and edema, Respiratory: Negative for shortness of breath, cough, wheezing, and pleuritic chest pain, Back: Negative for injury and pain, : Negative for injury, bleeding, discharge, and swelling, MS/Extremity: Negative for injury and deformity, Skin: Negative for injury, rash, and discoloration, Neuro: Negative for headache, weakness, numbness, tingling, and seizure, Psych: Negative for depression, anxiety, suicide ideation, homicidal ideation, and hallucinations, Allergy/Immunology: Negative for hives, rash, and allergies, Endocrine: Negative for neck swelling, polydipsia, polyuria, polyphagia, and marked weight changes, Hematologic/Lymphatic: Negative for swollen nodes, abnormal bleeding, and unusual bruising. 22:03 Abdomen/GI: Positive for abdominal pain, of the epigastric area, right upper quadrant and left upper quadrant. Exam: 22:03 Constitutional: This is a well developed, well nourished patient who is awake, alert, ingrid and in no acute distress. Head/Face: Normocephalic, atraumatic. Eyes: Pupils equal round and reactive to light, extra-ocular motions intact. Lids and lashes normal. Conjunctiva and sclera are non-icteric and not injected. Cornea within normal limits. Periorbital areas with no swelling, redness, or edema. ENT: Nares patent. No nasal discharge, no septal abnormalities noted. Tympanic membranes are normal and external auditory canals are clear. Oropharynx with no redness, swelling, or masses, exudates, or evidence of obstruction, uvula midline. Mucous membranes moist. Neck: Trachea midline, no thyromegaly or masses palpated, and no cervical lymphadenopathy. Supple, full range of motion without nuchal rigidity, or vertebral point tenderness. No Meningismus. Chest/axilla: Normal chest wall appearance and motion. Nontender with no deformity. No lesions are appreciated. Cardiovascular: Regular rate and rhythm with a normal S1 and S2. No gallops, murmurs, or rubs. Normal PMI, no JVD. No pulse deficits. Respiratory: Lungs have equal breath sounds bilaterally, clear to auscultation and percussion. No rales, rhonchi or wheezes noted. No increased work of breathing, no retractions or nasal flaring. Back: No spinal tenderness. No costovertebral tenderness. Full range of motion. Male : Normal genitalia with no discharge or lesions. Skin: Warm, dry with normal turgor. Normal color with no rashes, no lesions, and no evidence of cellulitis. MS/ Extremity: Pulses equal, no cyanosis. Neurovascular intact. Full, normal range of motion. Neuro: Awake and alert, GCS 15, oriented to person, place, time, and situation. Cranial nerves II-XII grossly intact. Motor strength 5/5 in all extremities. Sensory grossly intact. Cerebellar exam normal. Normal gait. Psych: Awake, alert, with orientation to person, place and time. Behavior, mood, and affect are within normal limits. 22:03 Abdomen/GI: Inspection: abdomen appears normal, Bowel sounds: normal, Palpation: mild abdominal tenderness, moderate abdominal tenderness, in the epigastric area, right upper quadrant and left upper quadrant, Liver: no appreciated palpable abnormalities, Hernia: not appreciated. Vital Signs: 21:21 BP 144 / 108; Pulse 73; Resp 18; Temp 98.1; Pulse Ox 100% on R/A; Weight 99.79 kg (R); sg Height 5 ft. 7 in. (170.18 cm) (R); Pain 10/10; 22:18 BP 141 / 89; Pulse 73; Resp 17; Pulse Ox 99% on R/A; Pain 8/10; rv 22:47 BP 132 / 97; Pulse 66; Resp 16; Pulse Ox 97% on R/A; Pain 5/10; rv 22:49 Pain 5/10; rv 23:30 BP 122 / 87; Pulse 66; Resp 16; Pulse Ox 99% on R/A; Pain 4/10; rv 01/23 01:20 BP 119 / 80; Pulse 75; Resp 16; Pulse Ox 96% on R/A; rv 01:44 Pain 0/10; rv 01:57 BP 114 / 80; Pulse 76; Resp 16; Temp 98; Pulse Ox 98% on R/A; Pain 0/10; rv 01/22 21:21 Body Mass Index 34.46 (99.79 kg, 170.18 cm) sg MDM: 01/22 21:28 Patient medically screened. [facility] 22:04 Data reviewed: vital signs, nurses notes, lab test result(s), EKG, radiologic studies, [facility] CT scan. 01/22 21:55 Order name: Urine Dipstick--Ancillary (enter results); Complete Time: 23:47 ar5 01/22 22:32 Order name: Basic Metabolic Panel EDOH 01/22 22:32 Order name: Liver (Hepatic) Function EDOH 01/22 22:32 Order name: Lipase [facility]OH 01/22 22:32 Order name: Creatinine (Radiology Only); Complete Time: 22:51 [facility]OH 01/22 22:38 Order name: CBC with Automated Diff; Complete Time: 22:51 [facility] 01/22 23:19 Order name: Urine Culture [facility] 01/23 00:30 Order name: Lipid Profile [facility] 01/22 21:29 Order name: IV Saline Lock; Complete Time: 21:37 [facility] 01/22 21:29 Order name: Labs collected and sent; Complete Time: 21:37 [facility] 01/22 21:29 Order name: Urine Dipstick-Ancillary (obtain specimen); Complete Time: 21:43 [facility] 01/22 22:02 Order name: US Abdomen Limited [facility] 01/22 22:52 Order name: CT Abd/Pelvis - IV Contrast Only [facility] 01/22 23:45 Order name: US; Complete Time: 23:47 [facility] 01/23 01:12 Order name: Lipid Profile; Complete Time: 01:52 EDMS Administered Medications: 21:43 Drug: NS 0.9% 1000 ml Route: IV; Rate: 1 bolus; Site: right antecubital; ca1 22:49 Follow up: IV Status: Completed infusion; IV Intake: 1000ml rv 22:12 Drug: NS 0.9% 1000 ml Route: IV; Rate: 1 bolus; Site: right antecubital; rv 22:49 Follow up: IV Status: Completed infusion; IV Intake: 1000ml rv 22:13 Drug: NS 0.9% 1000 ml Route: IV; Rate: 125 ml/hr; Site: right antecubital; rv 01/23 01:59 Follow up: IV Status: Completed infusion 01/22 22:17 Drug: morphine 4 mg {Note: RASS 0.} Route: IVP; Site: right antecubital; rv 22:49 Follow up: Pain 5/10 Adult; Response: No adverse reaction; Marked relief of symptoms; rv Pain is decreased; RASS: Alert and Calm (0) 22:17 Drug: Zofran 4 mg Route: IVP; Site: right antecubital; rv 22:49 Follow up: Response: No adverse reaction 01/23 00:32 Drug: NS 0.9% 1000 ml Route: IV; Rate: 1 bolus; Site: right antecubital; rv 01:19 Follow up: IV Status: Completed infusion; IV Intake: 1000ml rv 01:18 Drug: Zofran 4 mg Route: IVP; Site: right antecubital; rv 01:44 Follow up: Response: No adverse reaction rv 01:19 Drug: morphine 4 mg {Note: RASS 0.} Route: IVP; Site: right antecubital; rv :44 Follow up: Response: No adverse reaction; Marked relief of symptoms; Pain is decreased; rv RASS: Drowsy (-1) :44 Follow up: Pain 0/10 Adult rv Disposition: 01/23/20 00:28 Hospitalization ordered by Marino Mendosa for Inpatient Admission. Preliminary diagnosis are Acute pancreatitis, Abdominal tenderness. - Bed requested for Telemetry/MedSurg (Inpatient). - Status is Inpatient Admission. rv - Condition is Fair. - Problem is new. - Symptoms have improved. Signatures: Dispatcher [employer] EDMS David Olmstead, RN CARMELO Pankaj Lua MD MD cha Garcia, Cindy, RN RN James Vasquez RN RN rv Acob, CARMELO Paige RN ca1 Corrections: (The following items were deleted from the chart) 01/22 23:59 22:31 BASIC METABOLIC PANEL+C.LAB.BRZ ordered. EDOH EDOH 23:59 22:31 CBC+H.LAB.BRZ ordered. EDOH EDOH 23:59 22:31 Creatinine for Radiology+C.LAB.BRZ ordered. EDOH EDOH 23:59 22:31 HEPATIC FUNCTION+C.LAB.BRZ ordered. EDOH EDOH 23:59 22:31 LIPASE+C.LAB.BRZ ordered. EDOH EDOH 23:59 22:31 Urine Culture+BA.LAB.BRZ ordered. EDOH EDOH 01/23 01:44 00:28 Hospitalization Ordered by Marino Mendosa MD for Inpatient Admission. Preliminary cg diagnosis is Acute pancreatitis; Abdominal tenderness. Bed requested for Telemetry/MedSurg (Inpatient). Status is Inpatient Admission. Condition is Fair. Problem is new. Symptoms have improved. [facility] 02:00 01:44 01/23/2020 00:28 Hospitalization Ordered by Marino Mendosa MD for Inpatient rv Admission. Preliminary diagnosis is Acute pancreatitis; Abdominal tenderness. Bed requested for Telemetry/MedSurg (Inpatient). Status is Inpatient Admission. Condition is Fair. Problem is new. Symptoms have improved. cg
[2020-01-23] MEDS ORDERED: ACETAMINOPHEN 500 MG TAB PO PRN (01:08)
[2020-01-23] MEDS ORDERED: ONDANSETRON 4 MG/2 ML VIAL IV PRN (01:08)
[2020-01-23 01:11] LABS: HDL Cholesterol 37 mg/dL (40-60); LDL Cholesterol, Calculated 128 (<130)
[2020-01-23] MEDS ORDERED: ONDANSETRON 4 MG/2 ML VIAL ONE (01:14)
[2020-01-23] MEDS ORDERED: MORPHINE 4 MG/ML SYR ONE (01:14)
[2020-01-23] MEDS ORDERED: NA CHLORIDE 0.9% 1,000 ML IV SCH (02:00)
[2020-01-23 02:41] VITALS: BMI 34.4
[2020-01-23 05:25] LABS: Absolute Lymphocytes (CBC) 3.7 K/uL (0.7-4.9); Basophils % 0.5 % (0-1.3); Hematocrit 45.7 % (39.6-49.0); Lymphocytes % 25.2 % (15.3-44.8); MPV 9.3 fL (7.6-11.3); RBC Red Blood Cell Count 4.96 M/uL (4.33-5.43)
[2020-01-23 05:29] LABS: Protime INR 0.99
[2020-01-23 05:39] LABS: ALT/SGPT 63 U/L (12-78); AST/SGOT 19 U/L (15-37); Albumin 3.1 g/dL (3.4-5.0); Alkaline Phosphatase 75 U/L (45-117); BUN Blood Urea Nitrogen 8 mg/dL (7-18); Bicarbonate 29 mmol/L (21-32); Bilirubin Total 0.6 mg/dL (0.2-1.0); Glucose Level 98 mg/dL (74-106); Potassium 4.4 mmol/L (3.5-5.1); Protein, Total 7.1 g/dL (6.4-8.2); Sodium Level 140 mmol/L (136-145)
[2020-01-23] MEDS: MORPHINE 4 MG/ML SYR IV PRN ×3 (05:56→18:13)
--- NOTE | 2020-01-23 10:25 | RAD REPORT ---
EXAM DESCRIPTION: CT ABDOMEN PELVIS WITH IV CONTRAST CLINICAL HISTORY: Epigastric and lower back pain. History of pancreatitis. COMPARISON: 06/06/2019 TECHNIQUE: CT scan of the abdomen and pelvis was performed with IV contrast. This exam was performed according to our departmental dose-optimization program, which includes automated exposure control, adjustment of the mA and/or kV according to patient size and/or use of iterative reconstruction techn ique. FINDINGS: The lung bases are clear. No pleural or pericardial effusions. There is no hiatal hernia. There is focal inflammatory stranding surrounding the pancreatic head and uncinate process. There is no evidence of necrosis or pseudocyst. The liver, spleen, gallbladder, adrenal glands, and kidneys ar e unremarkable. No urinary stones are seen. The pelvic organs are also unremarkable. No small bowel obstruction. The appendix is normal. There is no evidence of diverticulitis. No intrap eritoneal free fluid or free air is identified. The aorta is normal caliber. There are bilateral pars defects at L5-S1 without listhesis. There is no abnormal body wall hernia. IMPRESSION: Acute pancreatitis without pseudocyst or necrosis. Correlate with lab values. Electronically signed by: Chris Longoria MD 01/23/2020 12:10 AM [employer]EVEL GAME DES[employer]ER Due to temporary technical issues with the PACS/Fluency reporting system, reports are being signed b y the in house radiologist as a courtesy to ensure prompt reporting. The interpreting radiologist is fully responsible for the content of the report.
[2020-01-23] MEDS: NA CHLORIDE 0.9% 1,000 ML IV SCH ×2 (11:03→18:12)
--- NOTE | 2020-01-23 13:13 | P.PN ---
Subjective Date of Service: 01/23/20 Primary Care Provider: none Chief Complaint: Abdominal pain Subjective: Other (Abdominal pain improved. No significant nausea or vomiting.) Physical Examination - Vital Signs Temperature: 98.5 F Blood Pressure: 130/78 Pulse: 78 Respirations: 18 Pulse Ox (%): 95 - Physical Exam General: Alert, In no apparent distress, Oriented x3, Cooperative HEENT: Atraumatic Neck: Supple Respiratory: Clear to auscultation bilaterally, Normal air movement Cardiovascular: Normal pulses, Regular rate/rhythm Gastrointestinal: No masses, No rebound, No guarding, Tenderness (Less pain to the epigastric region) Musculoskeletal: No erythema, No tenderness, No warmth Integumentary: No tenderness/swelling, No erythema, No warmth, No cyanosis Neurological: Normal speech, Normal strength at 5/5 x4 extr, Normal tone, Normal affect - Studies Laboratory Data (last 24 hrs) 01/23/20 00:30: Triglycerides Cancelled, Cholesterol Cancelled, HDL Cholesterol Cancelled, Cholesterol/HDL Ratio Cancelled 01/22/20 21:34: Creatinine 0.87 01/22/20 21:34: WBC 16.9 H, Hgb 16.5, Hct 50.5 H, Plt Count 256 01/22/20 21:34: Sodium 136, Potassium 3.8, BUN 11, Creatinine 0.93, Glucose 98, Total Bilirubin 0.4, AST 25, ALT 81 H, Alkaline Phosphatase 89, Triglycerides 375 H, Cholesterol 240 H, HDL Cholesterol 37 L, Cholesterol/HDL Ratio 6.49, Lipase 219 01/22/20 21:29: Creatinine Cancelled 01/22/20 21:29: WBC Cancelled, Hgb Cancelled, Hct Cancelled, Plt Count Cancelled 01/22/20 21:29: Sodium Cancelled, Potassium Cancelled, BUN Cancelled, Creatinine Cancelled, Glucose Cancelled, Total Bilirubin Cancelled, AST Cancelled, ALT Cancelled, Alkaline Phosphatase Cancelled, Lipase Cancelled Medications List Reviewed: Yes Assessment & Plan Discharge Plan: Home Plan to discharge in: 24 Hours - Code Status/Comfort Care Code Status Assessed: Yes (Patient is full code) Physician Review Additional Text: Impression: Epigastric abdominal pain with nausea secondary to recurrent alcoholic pancreatitis GERD Alcohol use Hypertriglyceridemia Plan: Epigastric abdominal pain with nausea secondary to recurrent alcoholic pancreatitis: CT scan reviewed. Abdominal ultrasound unremarkable. Continue aggressive IV fluid hydration. Encourage ambulation. Continue bowel rest. Once significantly improved. Will start clear liquid diet then advance as tolerated. Education on alcohol cessation addressed in detail. Patient plans to quit. Will provide medication for GERD. Anticipate discharge in the next 24 -48 hr pre GERD: Will provide medication Alcohol use: Alcohol cessation addressed in detail. Patient understands that this will be important to prevent pancreatitis Hypertriglyceridemia: Triglycerides slightly elevated. Will recommend fish oil at discharge. Dietary changes will be addressed. No need for IV insulin. Time Spent Managing Pts Care (In Minutes): 55
[2020-01-23] MEDS: FOLIC ACID 5 MG/ML VIAL IVP SCH (14:25)
[2020-01-23] MEDS: THIAMINE 200 MG/2 ML INJ IVP SCH (14:25)
[2020-01-23 14:37] LABS: Barbiturates NEGATIVE (NEGATIVE); Benzodiazepines NEGATIVE (NEGATIVE); Cocaine NEGATIVE (NEGATIVE); METHAMPHETAM NEGATIVE (NEGATIVE); Methadone NEGATIVE (NEGATIVE); Opiates POSITIVE (NEGATIVE); Phencyclidine NEGATIVE (NEGATIVE); THC Cannibis NEGATIVE (NEGATIVE)
[2020-01-23] MEDS: ENOXAPARIN 40 MG/0.4 ML SQ SCH (16:46)
[2020-01-23] MEDS: FAMOTIDINE 20 MG/2 ML VIAL IV SCH (20:19)
[2020-01-23] MEDS: HYDROCODONE/APAP 7.5/325 MG TAB PO PRN (20:20)
--- NOTE | 2020-01-23 23:09 | P.HP ---
Certification for Inpatient Patient admitted to: Observation With expected LOS: <2 Midnights Patient will require the following post-hospital care: None Practitioner: I am a practitioner with admitting privileges, knowledge of patient current condition, hospital course, and medical plan of care. Services: Services provided to patient in accordance with Admission requirements found in Title 42 Section 412.3 of the Code of Federal Regulations Patient History Date of Service: 01/23/20 Reason for admission: Abdominal pain History of Present Illness: Patient is a 34-year-old gentleman who has a history of recurrent pancreatitis. He states that they have not been able to identify the etiology of the pancreatitis. He does not drink regularly. He denies history of gallstones. He does not have elevated triglycerides. He came into the hospital with epigastric tenderness. CT revealed acute pancreatitis findings with fat stranding around the head of the pancreas. His lipase was normal. He will be admitted to the hospital for further evaluation. Allergies No Known Allergies Allergy (Unverified 01/22/20 22:23) Home Medications: Lactobacillus Combo No.10 [Probiotic] 1 cap PO DAILY 01/23/20 Multivitamin/Iron/Folic Acid [Centrum Adults Tablet] 1 tab PO DAILY 01/23/20 - Past Medical/Surgical History Has patient received pneumonia vaccine in the past: No Diabetic: No -: pancreatitis Past Surgical History: Patient denies surgical history - Family History Father History Unknown: Yes Mother Medical History: Heart disease, Hypertension, Diabetes, Stroke - Social History Smoking Status: Current every day smoker Alcohol use: Yes CD- Drugs: No Caffeine use: Yes Place of Residence: Home Review of Systems 10-point ROS is otherwise unremarkable Physical Examination - Vital Signs Temperature: 97.7 F Blood Pressure: 134/84 Pulse: 74 Respirations: 20 Pulse Ox (%): 98 - Physical Exam General: Alert, In no apparent distress, Oriented x3 HEENT: Atraumatic, PERRLA, Mucous membr. moist/pink, EOMI, Sclerae nonicteric Neck: Supple, 2+ carotid pulse no bruit, No LAD, Without JVD or thyroid abnormality Respiratory: Clear to auscultation bilaterally, Normal air movement Cardiovascular: Regular rate/rhythm, Normal S1 S2, No murmurs Gastrointestinal: Normal bowel sounds, Soft and benign, Non-distended, Tenderness (Epigastric tenderness) Musculoskeletal: No clubbing, No swelling, No tenderness Integumentary: No rashes Neurological: Normal gait, Normal speech, Normal strength at 5/5 x4 extr, Normal tone, Sensation intact, Cranial nerves 3-12 intact, Normal affect Lymphatics: No axilla or inguinal lymphadenopathy - Studies Laboratory Data (last 24 hrs) 01/23/20 00:30: Triglycerides Cancelled, Cholesterol Cancelled, HDL Cholesterol Cancelled, Cholesterol/HDL Ratio Cancelled 01/22/20 21:34: Sodium 136, Potassium 3.8, BUN 11, Creatinine 0.93, Glucose 98, Total Bilirubin 0.4, AST 25, ALT 81 H, Alkaline Phosphatase 89, Triglycerides 375 H, Cholesterol 240 H, HDL Cholesterol 37 L, Cholesterol/HDL Ratio 6.49, Lipase 219 01/22/20 21:29: Creatinine Cancelled 01/22/20 21:29: WBC Cancelled, Hgb Cancelled, Hct Cancelled, Plt Count Cancelled 01/22/20 21:29: Sodium Cancelled, Potassium Cancelled, BUN Cancelled, Creatinine Cancelled, Glucose Cancelled, Total Bilirubin Cancelled, AST Cancelled, ALT Cancelled, Alkaline Phosphatase Cancelled, Lipase Cancelled Assessment & Plan - Problems (Diagnosis) (1) Acute pancreatitis Current Visit: Yes Status: Acute - Plan Plan: 1. Aggressive IV hydration 2. Pain control 3. GI consultation 4. Check lipid profile 5. May need MRCP 6. NPO 7. GI and DVT prophylaxis Discharge Plan: Home Plan to discharge in: Greater than 2 days - Advance Directives Does patient have a Living Will: No Does patient have a Durable POA for Healthcare: No - Code Status/Comfort Care Code Status Assessed: Yes Code Status: Full Code Critical Care: No Time Spent Managing PTS Care (In Minutes): 45
[2020-01-24] MEDS: NA CHLORIDE 0.9% 1,000 ML IV SCH ×6 (00:09→23:00)
[2020-01-24] MEDS: HYDROCODONE/APAP 7.5/325 MG TAB PO PRN ×4 (03:05→22:36)
[2020-01-24 05:53] LABS: ALT/SGPT 46 U/L (12-78); AST/SGOT 13 U/L (15-37); Alkaline Phosphatase 77 U/L (45-117); BUN Blood Urea Nitrogen 7 mg/dL (7-18); Bicarbonate 26 mmol/L (21-32); Bilirubin Total 0.6 mg/dL (0.2-1.0); Glucose Level 89 mg/dL (74-106); Lipase 99 U/L (73-393); Magnesium 1.9 mg/dL (1.8-2.4); Potassium 3.7 mmol/L (3.5-5.1); Protein, Total 7.1 g/dL (6.4-8.2); Sodium Level 138 mmol/L (136-145)
[2020-01-24] MEDS: MORPHINE 4 MG/ML SYR IV PRN (07:24)
[2020-01-24] MEDS: THIAMINE 200 MG/2 ML INJ IVP SCH (08:21)
[2020-01-24] MEDS: FAMOTIDINE 20 MG/2 ML VIAL IV SCH (08:21)
[2020-01-24] MEDS: FOLIC ACID 5 MG/ML VIAL IVP SCH (08:22)
--- NOTE | 2020-01-24 09:23 | P.PN ---
Subjective Date of Service: 01/24/20 Primary Care Provider: none Chief Complaint: Abdominal pain Subjective: Improving (Pain improved. No significant nausea vomiting.) Physical Examination - Vital Signs Temperature: 97.6 F Blood Pressure: 132/79 Pulse: 77 Respirations: 19 Pulse Ox (%): 95 - Physical Exam General: Alert, In no apparent distress, Oriented x3, Cooperative HEENT: Atraumatic Neck: Supple Respiratory: Clear to auscultation bilaterally, Normal air movement Cardiovascular: Normal pulses, Regular rate/rhythm Gastrointestinal: No masses, No rebound, No guarding, Tenderness (Pain to the epigastric region improved.) Musculoskeletal: No erythema, No tenderness, No warmth Integumentary: No tenderness/swelling, No erythema, No warmth, No cyanosis Neurological: Normal speech, Normal strength at 5/5 x4 extr, Normal tone, Normal affect - Studies Medications List Reviewed: Yes Assessment & Plan Discharge Plan: Home Plan to discharge in: 24 Hours Physician Review Additional Text: Impression: Epigastric abdominal pain with nausea secondary to recurrent alcoholic pancreatitis GERD Alcohol use Hypertriglyceridemia Plan: Epigastric abdominal pain with nausea secondary to recurrent alcoholic pancreatitis: GI recommends MRCP. Await finding. Patient tolerating clear liquid diet. Will advance to full liquid then soft as tolerated. Encourage ambulation. Will discontinue IV pain medication. Anticipate improvement over the next 12-24 hr. Possible discharge later today if significantly improved. Will discuss further with GI. GERD: Continue with medication Alcohol use: Alcohol cessation addressed in detail. Patient understands that this will be important to prevent recurrent pancreatitis. Complete alcohol cessation education provided. Patient plans to quit. Hypertriglyceridemia: Triglycerides slightly elevated. Will start fish oil. Dietary changes addressed Time Spent Managing Pts Care (In Minutes): 55
[2020-01-24] MEDS ORDERED: MORPHINE 2 MG/ML SYR IV ONE (12:29)
--- NOTE | 2020-01-24 15:46 | RAD REPORT ---
EXAM DESCRIPTION: MRI - Cholangiogram - 01/24/2020 2:10 pm CLINICAL HISTORY: Persistent abdominal pain COMPARISON: CT study January 22, abdominal ultrasound limited January 22 TECHNIQUE: Axial and coronal heavily T2 weighted sequences were obtained. Coronal T2 HASTE fat satur ation static and coronal multiplane reconstruction imaging generated and reviewed. Horizontal and seth tical axis rotational views obtained using maximum intensity projection (MIP) protocol. FINDINGS: Well filled gallbladder shows no intraluminal filling defect or suspicious finding. Common bile duct is normal in diameter. No duct stone, stricture or mass. Only a small portion of the pancr eatic duct was visible in the head and proximal body. No pancreatic stone, stricture or mass identifi able. IMPRESSION: Negative MRCP
[2020-01-24] MEDS: ENOXAPARIN 40 MG/0.4 ML SQ SCH (16:29)
[2020-01-24] MEDS: FAMOTIDINE 20 MG TAB PO SCH (20:45)
[2020-01-25] MEDS: HYDROCODONE/APAP 7.5/325 MG TAB PO PRN ×4 (03:50→21:01)
[2020-01-25] MEDS: NA CHLORIDE 0.9% 1,000 ML IV SCH ×3 (03:51→19:34)
[2020-01-25 06:01] LABS: ALT/SGPT 33 U/L (12-78); AST/SGOT 9 U/L (15-37); Alkaline Phosphatase 79 U/L (45-117); BUN Blood Urea Nitrogen 5 mg/dL (7-18); Bicarbonate 24 mmol/L (21-32); Bilirubin Total 0.8 mg/dL (0.2-1.0); Glucose Level 112 mg/dL (74-106); Lipase 65 U/L (73-393); Potassium 3.7 mmol/L (3.5-5.1); Protein, Total 7.9 g/dL (6.4-8.2); Sodium Level 136 mmol/L (136-145)
--- NOTE | 2020-01-25 09:07 | RAD REPORT ---
EXAM DESCRIPTION: RAD - Abdomen 1 View (KUB) - 01/25/2020 8:33 am CLINICAL HISTORY: Abdomen pain. FINDINGS: Air is present within nondilated loop of small bowel within the left abdomen perhaps an il eus Bowel gas pattern is otherwise unremarkable No abnormal calcifications seen
[2020-01-25] MEDS: FOLIC ACID 1 MG TABLET PO SCH (09:13)
[2020-01-25] MEDS: FAMOTIDINE 20 MG TAB PO SCH ×2 (09:13→19:32)
[2020-01-25] MEDS: THIAMINE HCL 100 MG TABLET PO SCH (09:13)
--- NOTE | 2020-01-25 09:46 | P.PN ---
Subjective Date of Service: 01/25/20 Primary Care Provider: none Chief Complaint: Abdominal pain Subjective: Other (Patient tolerating clear to full liquid diet. Not tolerating regular diet. Reports no passage of gas. Pain stable.) Physical Examination - Vital Signs Temperature: 99.7 F Blood Pressure: 145/96 Pulse: 91 Respirations: 19 Pulse Ox (%): 95 - Physical Exam General: Alert, In no apparent distress, Cooperative HEENT: Atraumatic Neck: Supple Respiratory: Clear to auscultation bilaterally, Normal air movement Cardiovascular: Normal pulses, Regular rate/rhythm Gastrointestinal: Normal bowel sounds, Soft and benign, Non-distended, Tenderness (Mild tenderness to the epigastric region) Neurological: Normal speech, Normal strength at 5/5 x4 extr, Normal tone, Normal affect - Studies Microbiology Data (last 24 hrs): 01/22/20 21:34 Clean Catch Urine [place] Count - Final 01/22/20 21:34 Clean Catch Urine - Final No growth. Medications List Reviewed: Yes Assessment & Plan Discharge Plan: Home Plan to discharge in: 24 Hours Physician Review Additional Text: Impression: Epigastric abdominal pain with nausea secondary to recurrent alcoholic pancreatitis with possible ileus GERD Alcohol use Hypertriglyceridemia Plan: Epigastric abdominal pain with nausea secondary to recurrent alcoholic pancreatitis with possible ileus: MRCP negative. Patient tolerating clear liquid to full liquid diet. Still no passage of gas. Possible ileus. Continue to recommend ambulation. Continue pain medication. Will reassess this afternoon. Will discuss with GI. Likely discharge in the next 24 hr. GERD: Continue with medication Alcohol use: Alcohol cessation addressed in detail. Patient understands that this will be important to prevent recurrent pancreatitis. Complete alcohol cessation education provided. Patient plans to quit. Hypertriglyceridemia: Triglycerides slightly elevated. Will start fish oil. Dietary changes addressed Time Spent Managing Pts Care (In Minutes): 55
[2020-01-25] MEDS: ENOXAPARIN 40 MG/0.4 ML SQ SCH (18:10)
[2020-01-25] MEDS: TRAMADOL HCL 50 MG TAB PO PRN (19:32)
[2020-01-26] MEDS: HYDROCODONE/APAP 7.5/325 MG TAB PO PRN ×3 (03:28→15:28)
[2020-01-26 06:10] LABS: ALT/SGPT 31 U/L (12-78); AST/SGOT 14 U/L (15-37); Albumin 2.7 g/dL (3.4-5.0); Alkaline Phosphatase 83 U/L (45-117); BUN Blood Urea Nitrogen 8 mg/dL (7-18); Bicarbonate 28 mmol/L (21-32); Bilirubin Total 0.6 mg/dL (0.2-1.0); Glucose Level 97 mg/dL (74-106); Lipase 50 U/L (73-393); Magnesium 2.3 mg/dL (1.8-2.4); Potassium 3.8 mmol/L (3.5-5.1); Protein, Total 7.6 g/dL (6.4-8.2); Sodium Level 137 mmol/L (136-145)
[2020-01-26] MEDS: NA CHLORIDE 0.9% 1,000 ML IV SCH (06:34)
[2020-01-26] MEDS: FAMOTIDINE 20 MG TAB PO SCH (07:42)
[2020-01-26] MEDS: THIAMINE HCL 100 MG TABLET PO SCH (07:42)
[2020-01-26] MEDS: FOLIC ACID 1 MG TABLET PO SCH (07:43)
[2020-01-26] MEDS: TRAMADOL HCL 50 MG TAB PO PRN (07:47)
[2020-01-26 07:53] VITALS: O2SAT 93
--- NOTE | 2020-01-26 08:41 | P.PN ---
Subjective Date of Service: 01/26/20 Primary Care Provider: none Chief Complaint: Abdominal pain Subjective: Improving (Passage of gas noted. Pain improved.) Physical Examination - Vital Signs Temperature: 98.7 F Blood Pressure: 101/67 Pulse: 91 Respirations: 15 Pulse Ox (%): 93 - Physical Exam General: Alert, In no apparent distress, Oriented x3, Cooperative HEENT: Atraumatic Neck: Supple Respiratory: Clear to auscultation bilaterally, Normal air movement Cardiovascular: Normal pulses, Regular rate/rhythm Gastrointestinal: Tenderness (Less pain to the epigastric region.) Integumentary: No tenderness/swelling, No erythema, No warmth, No cyanosis Neurological: Normal speech, Normal strength at 5/5 x4 extr, Normal tone, Normal affect - Studies Microbiology Data (last 24 hrs): 01/22/20 21:34 Clean Catch Urine [place] Count - Final 01/22/20 21:34 Clean Catch Urine - Final No growth. Medications List Reviewed: Yes Assessment & Plan Discharge Plan: Home Plan to discharge in: 24 Hours Physician Review Additional Text: Impression: Epigastric abdominal pain with nausea secondary to recurrent alcoholic pancreatitis with possible ileus GERD Alcohol use Hypertriglyceridemia Plan: Epigastric abdominal pain with nausea secondary to recurrent alcoholic pancreatitis with possible ileus: Patient continues to improve. Passage of gas noted. Encourage ambulation. Encourage incentive spirometer. If tolerating full liquid diet for breakfast will increase to full liquid later. Possible discharge as early as today if not tomorrow with improvement. GERD: Continue with medication Alcohol use: Alcohol cessation addressed in detail. Patient understands that this will be important to prevent recurrent pancreatitis. Complete alcohol cessation education provided. Patient plans to quit. Hypertriglyceridemia: Triglycerides slightly elevated. Will start fish oil at discharge. Dietary changes addressed Time Spent Managing Pts Care (In Minutes): 55
[2020-01-26] MEDS ORDERED: NA CHLORIDE 0.9% 1,000 ML IV SCH (09:00)
--- NOTE | 2020-01-26 15:17 | P.DS ---
Admission Date: 01/25/20 Discharge Date: 01/26/20 Primary Care Provider: none Disposition: ROUTINE DISCHARGE Discharge Condition: GOOD Reason for Admission: Abdominal pain Consultations: GI-Dr. Lui Procedures: ABUS: COMPARISON: Abdomen Exam Limited dated 07/24/2018 FINDINGS: The gallbladder demonstrates no gallstones. No pericholecystic fluid or gallbladder wall thickening. The common bile duct is normal measuring 4 mm. The liver demonstrates no findings of intrahepatic biliary dilatation. IMPRESSION: Unremarkable examination. CT Scan: FINDINGS: The lung bases are clear. No pleural or pericardial effusions. There is no hiatal hernia. There is focal inflammatory stranding surrounding the pancreatic head and uncinate process. There is no evidence of necrosis or pseudocyst. The liver, spleen, gallbladder, adrenal glands, and kidneys are unremarkable. No urinary stones are seen. The pelvic organs are also unremarkable. No small bowel obstruction. The appendix is normal. There is no evidence of diverticulitis. No intraperitoneal free fluid or free air is identified. The aorta is normal caliber. There are bilateral pars defects at L5-S1 without listhesis. There is no abnormal body wall hernia. IMPRESSION: Acute pancreatitis without pseudocyst or necrosis. MRCP: FINDINGS: Well filled gallbladder shows no intraluminal filling defect or suspicious finding. Common bile duct is normal in diameter. No duct stone, stricture or mass. Only a small portion of the pancreatic duct was visible in the head and proximal body. No pancreatic stone, stricture or mass identifiable. IMPRESSION: Negative MRCP Medical Problem List: Epigastric abdominal pain with nausea secondary to recurrent alcoholic pancreatitis with possible ileus GERD Alcohol use Hypertriglyceridemia Brief History of Present Illness: 34-year-old male with history of pancreatitis. Patient presented with epigastric pain. CT scan revealed pancreatitis. Labs unremarkable. Patient was admitted for further evaluation and treatment. Hospital Course: Patient admitted for epigastric pain. CT scan revealed pancreatitis. Patient with history of alcohol use. Patient did drink the weekend before admission. Very minimal. Lipase levels unremarkable and remained normal throughout his stay. Patient was treated with IV fluids. Abdominal ultrasound unremarkable. MRCP unremarkable. Triglycerides slightly elevated. Case discussed with GI. No further intervention was required. Patient slowly improved. There was some suspicion of a possible ileus but patient was able to have good bowel movement and tolerated diet. At discharge he was able tolerate a diet. At discharge will recommend alcohol cessation to prevent recurrent pancreatitis. Will also recommend dietary changes and treatment of his hypertriglyceridemia with fish oil 1 g twice daily. Patient will be provided a limited supply of tramadol 50 mg 3 times a day as needed for pain. Patient may continue with lactobacillus 3 times a day. Recommend follow up with GI in 2-4 weeks to follow up this hospitalization. Education on alcohol cessation provided. Patient plans to quit. Education on pancreatitis provided. Patient likely has underlying GERD. Patient may take Pepcid 20 mg twice daily. Recommend follow up with GI for outpatient EGD. Vital Signs/Physical Exam: Temp Pulse Resp BP Pulse Ox 97.2 F 69 15 108/55 L 92 01/26/20 12:00 01/26/20 12:00 01/26/20 12:00 01/26/20 12:01/26/20 12:00 General: Alert, In no apparent distress, Oriented x3, Cooperative HEENT: Atraumatic Neck: Supple Respiratory: Clear to auscultation bilaterally, Normal air movement Cardiovascular: Normal pulses, Regular rate/rhythm Gastrointestinal: Normal bowel sounds, Soft and benign, Non-distended, No masses , No rebound, No guarding Musculoskeletal: No erythema, No tenderness, No warmth Integumentary: No tenderness/swelling, No erythema, No warmth, No cyanosis Neurological: Normal speech, Normal strength at 5/5 x4 extr, Normal tone, Normal affect Laboratory Data at Discharge: WBC 14.5 K/uL (4.3-10.9) H D 01/23/20 04:58 Hgb 15.0 g/dL (13.6-17.9) 01/23/20 04:58 Hct 45.7 % (39.6-49.0) 01/23/20 04:58 Plt Count 222 K/uL (152-406) 01/23/20 04:58 PT 11.7 SECONDS (9.5-12.5) 01/23/20 04:58 INR 0.99 01/23/20 04:58 APTT 32.1 SECONDS (24.3-36.9) 01/23/20 04:58 Sodium 137 mmol/L (136-145) 01/26/20 05:10 Potassium 3.8 mmol/L (3.5-5.1) 01/26/20 05:10 BUN 8 mg/dL (7-18) 01/26/20 05:10 Creatinine 0.84 mg/dL (0.55-1.3) 01/26/20 05:10 Glucose 97 mg/dL (74-106) 01/26/20 05:10 Magnesium 2.3 mg/dL (1.8-2.4) 01/26/20 05:10 Total Bilirubin 0.6 mg/dL (0.2-1.0) 01/26/20 05:10 AST 14 U/L (15-37) L 01/26/20 05:10 ALT 31 U/L (12-78) 01/26/20 05:10 Alkaline Phosphatase 83 U/L (45-117) 01/26/20 05:10 Triglycerides Cancelled 01/23/20 00:30 Cholesterol Cancelled 01/23/20 00:30 HDL Cholesterol Cancelled 01/23/20 00:30 Cholesterol/HDL Ratio Cancelled 01/23/20 00:30 Lipase 50 U/L (73-393) L 01/26/20 05:10 Home Medications: Multivitamin/Iron/Folic Acid [Centrum Adults Tablet] 1 tab PO DAILY 01/23/20 Docosahexanoic AC/Epa [Fish Oil 1,000 MG CAP] 1 cap PO BID #60 cap 01/26/20 Famotidine [Pepcid] 20 mg PO BID #60 tab 01/26/20 Lactobacillus Combo No.10 [Probiotic] 1 cap PO TID #30 capsule 01/26/20 traMADol HCL [Ultram*] 50 mg PO TID PRN #10 tab 01/26/20 New Medications: Docosahexanoic AC/Epa [Fish Oil 1,000 MG CAP] 1 cap PO BID #60 cap Famotidine [Pepcid] 20 mg PO BID #60 tab Lactobacillus Combo No.10 [Probiotic] 1 cap PO TID #30 capsule traMADol HCL [Ultram*] 50 mg PO TID PRN #10 tab PRN Reason: Pain Scale 2-4 (Mild) Patient Discharge Instructions: 1. Recommend follow up with a PCP to establish care follow up this hospitalization. 2. Patient admitted for epigastric pain. CT scan revealed pancreatitis. Patient with history of alcohol use. Patient did drink the weekend before admission. Very minimal. Lipase levels unremarkable and remained normal throughout his stay. Patient was treated with IV fluids. Abdominal ultrasound unremarkable. MRCP unremarkable. Triglycerides slightly elevated. Case discussed with GI. No further intervention was required. Patient slowly improved. There was some suspicion of a possible ileus but patient was able to have good bowel movement and tolerated diet. At discharge he was able tolerate a diet. At discharge will recommend alcohol cessation to prevent recurrent pancreatitis. Will also recommend dietary changes and treatment of his hypertriglyceridemia with fish oil 1 g twice daily. Patient will be provided a limited supply of tramadol 50 mg 3 times a day as needed for pain. Patient may continue with lactobacillus 3 times a day. Recommend follow up with GI in 2-4 weeks to follow up this hospitalization. Education on alcohol cessation provided. Patient plans to quit. Education on pancreatitis provided. 3. Patient likely has underlying GERD. Patient may take Pepcid 20 mg twice daily. Recommend follow up with GI for outpatient EGD. Diet: GI soft Activity: Ad jeniffer Time spent managing pt's care (in minutes): 55
[2020-01-26] MEDS: ENOXAPARIN 40 MG/0.4 ML SQ SCH (16:39)
[2020-01-26 16:49] VITALS: BP 139/82; TEMP 98.8
== END 2020-01-26 18:28 | disposition home or self-care (01) | DRG 439 ==
LOC: ER 21:09 → ERHOLD 01-23 01:15 → 2ND 01-23 01:57 → OBSVTOIN 01-25 16:08
PROVIDERS: ADMIT Hospitalist; ATTEND Hospitalist
DX: K85.20 Alcohol induced acute pancreatitis without necrosis or infection (principal); K56.7 Ileus, unspecified; K86.0 Alcohol-induced chronic pancreatitis; K21.9 Gastro-esophageal reflux disease without esophagitis; E78.1 Pure hyperglyceridemia
CPT/HCPCS: 36415; 74018; 74177; 74181; 76705; 80048; 80053; 80061; 80076; 80307; 80320; 81003; 82947; 83690; 83735; 85025; 85610; 85730; 87086; 87088; 96361; 96374; 96375; 99285; G0378; J1650; J2270; J2405; J3411; J7030; Q9967

== ENCOUNTER 2020-08-20 14:53 | Emergency (ER) | payer OTHER ==
--- NOTE | 2020-08-20 16:00 | EDPHYS ---
Physician Documentation [facility] Name: Chai Hartley Age: 34 yrs Sex: Male : 1985 Arrival Date: 08/20/2020 Time: 14:54 Bed 25 Private MD: ED Physician Eugenio Diggs HPI: 08/20 16:10 This 34 yrs old Male presents to ER via Ambulatory with complaints of Hives. kb 16:10 The patient's rash thought to be caused by an unknown cause. The rash is located on the kb body diffusely. The rash can be described as urticarial. Onset: The symptoms/episode began/occurred yesterday. Associated signs and symptoms: Pertinent positives: itching. Severity of symptoms: At their worst the symptoms were moderate in the emergency department the symptoms are unchanged. Treatment given at home: Benadryl. The patient has not experienced similar symptoms in the past. The patient has not recently seen a physician. Pt reports rash started last night, took benadryl and it got better, but it was back this morning. c/o itching. Historical: - Allergies: 15:22 No Known Allergies; em - PMHx: 15:22 Pancreatitis; em - PSHx: 15:22 None; em - Immunization history:: Adult Immunizations up to date. - Social history:: Smoking status: Patient reports the use of cigarette tobacco products, smokes one pack cigarettes per day. ROS: 16:09 Constitutional: Negative for fever, chills, and weight loss, Cardiovascular: Negative kb for chest pain, palpitations, and edema, Respiratory: Negative for shortness of breath, cough, wheezing, and pleuritic chest pain, Abdomen/GI: Negative for abdominal pain, nausea, vomiting, diarrhea, and constipation, Back: Negative for injury and pain, MS/Extremity: Negative for injury and deformity, Neuro: Negative for headache, weakness, numbness, tingling, and seizure. 16:09 Skin: Positive for rash, diffusely. Exam: 16:09 Constitutional: This is a well developed, well nourished patient who is awake, alert, kb and in no acute distress. Head/Face: Normocephalic, atraumatic. Chest/axilla: Normal chest wall appearance and motion. Nontender with no deformity. No lesions are appreciated. Cardiovascular: Regular rate and rhythm with a normal S1 and S2. No gallops, murmurs, or rubs. Normal PMI, no JVD. No pulse deficits. Respiratory: Lungs have equal breath sounds bilaterally, clear to auscultation and percussion. No rales, rhonchi or wheezes noted. No increased work of breathing, no retractions or nasal flaring. Abdomen/GI: Soft, non-tender, with normal bowel sounds. No distension or tympany. No guarding or rebound. No evidence of tenderness throughout. MS/ Extremity: Pulses equal, no cyanosis. Neurovascular intact. Full, normal range of motion. Neuro: Awake and alert, GCS 15, oriented to person, place, time, and situation. Cranial nerves II-XII grossly intact. Motor strength 5/5 in all extremities. Sensory grossly intact. Cerebellar exam normal. Normal gait. 16:09 Skin: consistent with urticaria, and is diffusely located. Vital Signs: 15:18 BP 138 / 100; Pulse 93; Resp 18; Temp 98.3; Pulse Ox 97% on R/A; Weight 99.79 kg; em Height 5 ft. 6 in. (167.64 cm); Pain 0/10; 15:18 Body Mass Index 35.51 (99.79 kg, 167.64 cm) em MDM: 15:57 Patient medically screened. kb 15:59 Data reviewed: vital signs, nurses notes. Data interpreted: Pulse oximetry: on room air kb is 97 %. Interpretation: normal. Counseling: I had a detailed discussion with the patient and/or guardian regarding: the historical points, exam findings, and any diagnostic results supporting the discharge/admit diagnosis, the need for outpatient follow up, a family practitioner, to return to the emergency department if symptoms worsen or persist or if there are any questions or concerns that arise at home. Administered Medications: 16:05 Drug: Pepcid 20 mg Route: PO; hb 16:05 Follow up: Response: Medication administered at discharge. hb 16:05 Drug: predniSONE 40 mg Route: PO; hb 16:05 Follow up: Response: Medication administered at discharge. hb Disposition: 08/20/20 15:59 Discharged to Home. Impression: Urticaria. - Condition is Stable. - Discharge Instructions: Hives, [id number], Allergies, [id number]. - Prescriptions for Pepcid 20 mg Oral Tablet - take 1 tablet by ORAL route every 12 hours for 5 days; 10 tablet. Prednisone 20 mg Oral Tablet - take 1 tablet by ORAL route once daily for 5 days; 5 tablet. - Medication Reconciliation Form, Thank You Letter, Antibiotic Education, Prescription Opioid Use form. - Follow up: Emergency Department; When: As needed; Reason: Worsening of condition. Follow up: Private Physician; When: 2 - 3 days; Reason: Recheck today's complaints, Continuance of care, Re-evaluation by your physician. Addendum: 08/22/2020 07:16 Co-signature as Attending Physician, Eugenio Diggs MD. r n Signatures: Sylvia Martins, LAURE-Yesenia [employer]GER-Shen [place], RN RN Eugenio Mark MD MD rn Baxter, Heather, RN RN hb Corrections: (The following items were deleted from the chart) 08/20 16:06 15:59 08/20/2020 15:59 Discharged to Home. Impression: Urticaria. Condition is Stable. hb Forms are Medication Reconciliation Form, Thank You Letter, Antibiotic Education, Prescription Opioid Use. Follow up: Emergency Department; When: As needed; Reason: Worsening of condition. Follow up: Private Physician; When: 2 - 3 days; Reason: Recheck today's complaints, Continuance of care, Re-evaluation by your physician. kb
--- NOTE | 2020-08-20 16:00 | ER ---
Nurse's Notes [facility] Name: Chai Hartley Age: 34 yrs Sex: Male : 1985 Arrival Date: 08/20/2020 Time: 14:54 Bed 25 Private MD: Diagnosis: Urticaria Presentation: 08/20 15:18 Chief complaint: Patient states: reports hives that are "everywhere" started yesterday, em denies difficulty breathing, they are itchy, took Benadryl at 0500 today, hives noted to tracy. arms, abdomen, and neck. Coronavirus screen: Client denies travel out of the [place] in the last 14 days. Ebola Screen: Patient negative for fever greater than or equal to 101.5 degrees Fahrenheit, and additional compatible Ebola Virus Disease symptoms Patient denies exposure to infectious person. Patient denies travel to an Ebola-affected area in the 21 days before illness onset. No symptoms or risks identified at this time. Onset: The symptoms/episode began/occurred yesterday. Anaphylaxis evaluation, no signs or symptoms of anaphylaxis were noted. Initial Sepsis Screen: Does the patient meet any 2 criteria? No. Patient's initial sepsis screen is negative. Does the patient have a suspected source of infection? No. Patient's initial sepsis screen is negative. Risk Assessment: Do you want to hurt yourself or someone else? Patient reports no desire to harm self or others. Onset of symptoms was August 19, 2020. 15:18 Method Of Arrival: Ambulatory em 15:18 Acuity: MEDINA 5 em Historical: - Allergies: 15:22 No Known Allergies; em - PMHx: 15:22 Pancreatitis; em - PSHx: 15:22 None; em - Immunization history:: Adult Immunizations up to date. - Social history:: Smoking status: Patient reports the use of cigarette tobacco products, smokes one pack cigarettes per day. Screenin:18 Abuse screen: Denies threats or abuse. Nutritional screening: No deficits noted. em Tuberculosis screening: No symptoms or risk factors identified. 15:18 Fall Risk None identified. em Assessment: 15:18 General: Appears in no apparent distress. comfortable, Behavior is calm, cooperative, em appropriate for age, Denies fever. Pain: Denies pain. Neuro: Level of Consciousness is awake, alert, obeys commands, Oriented to person, place, time, situation, Appropriate for age. Cardiovascular: Capillary refill < 3 seconds Patient's skin is warm and dry. Respiratory: Airway is patent Respiratory effort is even, unlabored, Respiratory pattern is regular, symmetrical, Breath sounds are clear bilaterally. GI: Patient currently denies nausea, vomiting. Derm: Skin is intact, is healthy with good turgor, Skin is pink, warm \\T\\ dry. Musculoskeletal: Capillary refill < 3 seconds. Vital Signs: 15:18 BP 138 / 100; Pulse 93; Resp 18; Temp 98.3; Pulse Ox 97% on R/A; Weight 99.79 kg; em Height 5 ft. 6 in. (167.64 cm); Pain 0/10; 15:18 Body Mass Index 35.51 (99.79 kg, 167.64 cm) em ED Course: 14:54 Patient arrived in ED. ag5 15:18 Patient has correct armband on for positive identification. Bed in low position. Call em light in reach. 15:22 Triage completed. em 15:22 Arm band placed on. em 15:48 Sylvia Martins FNP-C is [facility]. kb 15:48 Eugenio Diggs MD is Attending Physician. kb 16:05 Mallory Downs, CARMELO is Primary Nurse. hb 16:05 No provider procedures requiring assistance completed. Patient did not have IV access hb during this emergency room visit. Administered Medications: 16:05 Drug: Pepcid 20 mg Route: PO; hb 16:05 Follow up: Response: Medication administered at discharge. hb 16:05 Drug: predniSONE 40 mg Route: PO; hb 16:05 Follow up: Response: Medication administered at discharge. hb Outcome: 15:59 Discharge ordered by MD. kb 16:05 Discharged to home ambulatory. hb 16:05 Condition: stable 16:05 Discharge instructions given to patient, Instructed on discharge instructions, follow up and referral plans. medication usage, Demonstrated understanding of instructions, follow-up care, medications, Prescriptions given X 2. 16:06 Patient left the ED. hb Signatures: Sylvia Martins FNP-C FNP-Ckb Munoz, Edgar, RN RN Mallory Downs RN RN Higinio Vasquez ag5 Corrections: (The following items were deleted from the chart) 16:31 15:22 EKG completed in triage. Results shown to MD. em em
[2020-08-20] MEDS ORDERED: FAMOTIDINE 20 MG TAB ONE (16:09)
[2020-08-20] MEDS ORDERED: predniSONE 20 MG TAB ONE (16:09)
[2020-08-20 16:10] VITALS: BP 138/100; TEMP 98.3; O2SAT 97
== END 2020-08-20 16:06 | disposition home or self-care (01) ==
LOC: ER 14:53
DX: L50.9 Urticaria, unspecified (principal); F17.210 Nicotine dependence, cigarettes, uncomplicated
CPT/HCPCS: 99283; J7512

== ENCOUNTER 2022-01-01 23:34 | Emergency (ER) | payer OTHER ==
--- NOTE | 2022-01-01 23:53 | EDPHYS ---
Physician Documentation [facility] Name: Chai Hartley Age: 36 yrs Sex: Male : 1985 Arrival Date: 01/01/2022 Time: 23:36 Bed 6 Private MD: ED Physician Ahsan Pete HPI: 01/01 23:49 This 36 yrs old Male presents to ER via Unassigned with complaints of sp3 Headache, Jaw Pain, Ear Pain, Sore Throat. 23:49 36-year-old male with no significant past medical history presents with a 2-day history sp3 of left mandibular pain extending into his face and left ear along with pain when masticating. Patient denies fever, neck pain, headache, chest pain, shortness of breath, back pain, submandibular pain, tongue swelling, tonsillar pain, throat pain, any other ROS at this time.. Historical: - Allergies: 23:54 No Known Allergies; bb - Home Meds: 23:54 None [Active]; bb - PMHx: 23:54 Pancreatitis; bb - PSHx: 23:54 None; bb - Immunization history:: Adult Immunizations up to date, Client reports having NOT received the Covid vaccine. - Social history:: Smoking status: Patient reports the use of cigarette tobacco products, smokes one-half pack cigarettes per day. ROS: 23:50 Constitutional: Negative for fever, chills, and weight loss, Eyes: Negative for injury, sp3 pain, redness, and discharge, Neck: Negative for injury, pain, and swelling, Cardiovascular: Negative for chest pain, palpitations, and edema, Respiratory: Negative for shortness of breath, cough, wheezing, and pleuritic chest pain, Abdomen/GI: Negative for abdominal pain, nausea, vomiting, diarrhea, and constipation, Back: Negative for injury and pain, MS/Extremity: Negative for injury and deformity, Skin: Negative for injury, rash, and discoloration, Neuro: Negative for headache, weakness, numbness, tingling, and seizure, Psych: Negative for depression, anxiety, suicide ideation, homicidal ideation, and hallucinations, Allergy/Immunology: Negative for hives, rash, and allergies, Endocrine: Negative for neck swelling, polydipsia, polyuria, polyphagia, and marked weight changes. 23:50 All other systems are negative. Exam: 23:50 Constitutional: This is a well developed, well nourished patient who is awake, alert, sp3 and in no acute distress. Eyes: Pupils equal round and reactive to light, extra-ocular motions intact. Lids and lashes normal. Conjunctiva and sclera are non-icteric and not injected. Cornea within normal limits. Periorbital areas with no swelling, redness, or edema. ENT: Nares patent. No nasal discharge, no septal abnormalities noted. External auditory canals are clear. Oropharynx with no redness, swelling, or masses, exudates, or evidence of obstruction, uvula midline. Mucous membranes moist. Neck: Trachea midline, no thyromegaly or masses palpated, and no cervical lymphadenopathy. Supple, full range of motion without nuchal rigidity, or vertebral point tenderness. No Meningismus. Chest/axilla: Normal chest wall appearance and motion. Nontender with no deformity. No lesions are appreciated. Cardiovascular: Regular rate and rhythm with a normal S1 and S2. No gallops, murmurs, or rubs. Normal PMI, no JVD. No pulse deficits. Respiratory: Lungs have equal breath sounds bilaterally, clear to auscultation and percussion. No rales, rhonchi or wheezes noted. No increased work of breathing, no retractions or nasal flaring. Skin: Warm, dry with normal turgor. Normal color with no rashes, no lesions, and no evidence of cellulitis. Psych: Awake, alert, with orientation to person, place and time. Behavior, mood, and affect are within normal limits. 23:50 Head/face: Patient has left-sided mandibular abscess in the molar region along with gingivitis localized swelling. Remainder of oral cavity is normal. There is no pain at the TMJ junction. Bilateral tympanic membranes are normal.. Vital Signs: 23:52 BP 137 / 98; Pulse 71; Resp 16 S; Temp 98.4(O); Pulse Ox 96% on R/A; Weight 99.79 kg bb (R); Height 5 ft. 7 in. (170.18 cm) (R); Pain 10/10; 23:52 Body Mass Index 34.46 (99.79 kg, 170.18 cm) bb MDM: 23:51 Data reviewed: vital signs, nurses notes. ED course: 36-year-old male with dental sp3 abscess. Will treat with Augmentin and diclofenac and have him follow-up with his dentist. I urged urgent need for follow-up including possible complications of osteomyelitis and sepsis if not treated. Patient has normal vital signs and at this point oral medications should be sufficient if he can get follow-up in a timely fashion with his dentist.. 23:52 Patient medically screened. sp3 Administered Medications: 01/02 00:08 Drug: Ketorolac 60 mg Route: IM; Site: right gluteus; bb 00:08 Follow up: Response: Medication administered at discharge. bb Disposition Summary: 01/01/22 23:52 Discharge Ordered Location: Home sp3 Condition: Stable sp3 Diagnosis - Dental abscess sp3 Followup: sp3 - With: Vlad Quiles DDS - When: Upon discharge from the Emergency Department - Reason: Recheck today's complaints Discharge Instructions: - Discharge Summary Sheet sp3 - Dental Abscess sp3 Forms: - Medication Reconciliation Form sp3 - Thank You Letter sp3 - Antibiotic Education sp3 - Prescription Opioid Use sp3 Prescriptions: - Augmentin 875-125 mg Oral Tablet - take 1 tablet by ORAL route every 12 hours for 10 days; 20 tablet; Refills: 0, sp3 Product Selection Permitted - Diclofenac Sodium 75 mg Oral Tablet Sustained Release - take 1 tablet by ORAL route 2 times per day; 30 tablet; Refills: 0, Product sp3 Selection Permitted Signatures: Chelle Woodruff, CARMELO RN Ahsan Cruz MD MD sp3
[2022-01-02] MEDS ORDERED: KETOROLAC 30 MG/ML INJ ONE ×2 (00:05→00:10)
--- NOTE | 2022-01-02 00:11 | ER ---
Nurse's Notes [facility] Name: Chai Hartley Age: 36 yrs Sex: Male : 1985 Arrival Date: 01/01/2022 Time: 23:36 Bed 6 Private MD: Diagnosis: Dental abscess Presentation: 01/01 23:52 Chief complaint: Patient states: he is having left sided facial, jaw, and ear pain x 2 bb days. Coronavirus screen: At this time, the client does not indicate any symptoms associated with coronavirus-19. Ebola Screen: No symptoms or risks identified at this time. Initial Sepsis Screen: Does the patient meet any 2 criteria? No. Patient's initial sepsis screen is negative. Does the patient have a suspected source of infection? No. Patient's initial sepsis screen is negative. Risk Assessment: Do you want to hurt yourself or someone else? Patient reports no desire to harm self or others. Onset of symptoms was December 30, 2021. 23:52 Method Of Arrival: Ambulatory bb 23:52 Acuity: MEDINA 5 bb Triage Assessment: 23:55 General: Appears in no apparent distress. Behavior is calm, cooperative. Pain: bb Complains of pain in left jaw, face and ear pain. Neuro: Level of Consciousness is awake, alert, obeys commands, Oriented to person, place, time, situation. Cardiovascular: Capillary refill < 3 seconds Patient's skin is warm and dry. Respiratory: Respiratory effort is even, unlabored, Respiratory pattern is regular. GI: No signs and/or symptoms were reported involving the gastrointestinal system. Derm: Skin is pink, warm \T\ dry. Musculoskeletal: Circulation, motion, and sensation intact. Historical: - Allergies: 23:54 No Known Allergies; bb - Home Meds: 23:54 None [Active]; bb - PMHx: 23:54 Pancreatitis; bb - PSHx: 23:54 None; bb - Immunization history:: Adult Immunizations up to date, Client reports having NOT received the Covid vaccine. - Social history:: Smoking status: Patient reports the use of cigarette tobacco products, smokes one-half pack cigarettes per day. Screenin:58 Abuse screen: Denies threats or abuse. Nutritional screening: No deficits noted. bb Tuberculosis screening: No symptoms or risk factors identified. Fall Risk None identified. Assessment: 23:58 Reassessment: No changes from previously documented assessment. Patient is alert, bb oriented x 3, equal unlabored respirations, skin warm/dry/pink. see triage assessment. 01/02 00:09 Reassessment: Patient is alert, oriented x 3, equal unlabored respirations, skin bb warm/dry/pink. pt verbalized understanding of and agrees to plan of care discharge instructions given pt ambulated with steady gait to exit accompanied by family. Vital Signs: 01/01 23:52 BP 137 / 98; Pulse 71; Resp 16 S; Temp 98.4(O); Pulse Ox 96% on R/A; Weight 99.79 kg bb (R); Height 5 ft. 7 in. (170.18 cm) (R); Pain 10/10; 23:52 Body Mass Index 34.46 (99.79 kg, 170.18 cm) bb ED Course: 23:36 Patient arrived in ED. kc5 23:43 Ahsan Pete MD is Attending Physician. sp3 23:52 Vlad Quiles DDS is Referral Physician. sp3 23:53 Triage completed. bb 23:55 Arm band placed on Patient placed in an exam room, on a stretcher, on pulse oximetry. bb 23:58 Patient has correct armband on for positive identification. Adult w/ patient. bb 23:58 No provider procedures requiring assistance completed. Patient did not have IV access bb during this emergency room visit. Administered Medications: 01/02 00:08 Drug: Ketorolac 60 mg Route: IM; Site: right gluteus; bb 00:08 Follow up: Response: Medication administered at discharge. bb Outcome: 01/01 23:52 Discharge ordered by . sp3 01/02 00:09 Discharged to home ambulatory, with family. bb Condition: stable Discharge instructions given to patient, Instructed on discharge instructions, follow up and referral plans. medication usage, Demonstrated understanding of instructions, follow-up care, medications, Prescriptions given X 2. 00:10 Patient left the ED. bb Signatures: Chelle Woodruff, RN RN bb Ahsan Pete MD MD sp3 Zaida Valadez kc5 Corrections: (The following items were deleted from the chart) 01/01 23:55 23:52 BP 137 / 100; Pulse 71bpm; Resp 16bpm; Spontaneous; Pulse Ox 96% RA; Temp 98.4F bb Oral; 99.79 kg Reported; Height 5 ft. 7 in. Reported; BMI: 34.4; Pain 09/07; bb
[2022-01-02 00:35] VITALS: BP 137/98; TEMP 98.4; O2SAT 96
== END 2022-01-02 00:10 | disposition home or self-care (01) ==
LOC: ER 23:34
DX: K04.7 Periapical abscess without sinus (principal); F17.210 Nicotine dependence, cigarettes, uncomplicated
CPT/HCPCS: 96372; 99283

== ENCOUNTER 2024-12-04 07:05 | Emergency (ER) | payer OTHER, SELFPAY ==
[2024-12-04] MEDS ORDERED: ONDANSETRON 4 MG/2 ML VIAL ONE (07:37)
[2024-12-04] MEDS ORDERED: ACETAMINOPHEN 500 MG TAB ONE (07:37)
[2024-12-04] MEDS ORDERED: KETOROLAC 30 MG/ML INJ ONE (07:37)
[2024-12-04] MEDS ORDERED: NA CHLORIDE 0.9% 500 ML ONE (07:38)
[2024-12-04] MEDS ORDERED: BENZONATATE 100 MG CAP PO ONE (07:38)
[2024-12-04 07:52] LABS: Absolute Basophils 0.1 K/uL (0-0.5); Absolute Lymphocytes (CBC) 1.9 K/uL (0.7-4.9); Absolute Monocytes 1.3 K/uL (0.1-1.3); Absolute Neutrophil 8.1 K/uL (1.8-8.0); Basophils % 0.7 % (0-1.3); Eosinophils % 0.3 % (0-4.4); Hematocrit 45.8 % (39.6-49.0); Hemoglobin 15.5 g/dL (13.6-17.9); Lymphocytes % 16.7 % (15.3-44.8); MCH 30.5 pg (27.0-35.0); MCHC 33.8 g/dL (32.0-36.0); MPV 8.6 fL (7.6-11.3); Monocytes % 11.1 % (3.3-12.3); Neutrophils % 71.2 % (41.7-73.7); Platelets 255 thou/uL (152-406); RBC Red Blood Cell Count 5.09 M/uL (4.33-5.43); Red Cell Distribution Width 13.9 % (12.1-15.2)
[2024-12-04 08:05] LABS: Anion Gap 12.1 mEq/L (5.0-15.0); Potassium 3.1 mEq/L (3.5-5.1)
[2024-12-04 08:24] LABS: SARS-CoV-2 Antigen CONTROL BLUE LINE VIS/BG OK; SARS-CoV-2 Antigen Rapid Res Negative (Negative)
--- NOTE | 2024-12-04 08:28 | RAD REPORT ---
EXAMINATION: ONE VIEW CHEST XR CLINICAL INDICATION: Male, 38 years old.,COUGH TECHNIQUE: Frontal chest projection is submitted. Examination is limited by patient positioning and t echnique. COMPARISON: 01/22/2020 FINDINGS: The lungs are somewhat hypoinflated and clear. No pneumothorax or sizable effusion. The heart is nor mal in size. Mediastinal contours are unremarkable. IMPRESSION: No acute intrathoracic abnormalities.
--- NOTE | 2024-12-04 08:40 | ER ---
Nurse's Notes [facility] Name: Chai Hartley Age: 38 yrs Sex: Male : 1985 Arrival Date: 12/04/2024 Time: 07:05 Bed 8 Private MD: Diagnosis: Viral infection, unspecified;Hypo-osmolality and hyponatremia;Hypokalemia Presentation: 12/04 07:08 Chief complaint: Patient states: painful cough, headache, fatigue and fever since Wednesday. Coronavirus screen: Client denies travel out of the [place] in the last 14 days. Ebola Screen: Patient denies exposure to infectious person. Patient denies travel to an Ebola-affected area in the 21 days before illness onset. Initial Sepsis Screen: Does the patient meet any 2 criteria? No. Patient's initial sepsis screen is negative. Does the patient have a suspected source of infection? No. Patient's initial sepsis screen is negative. Risk Assessment: Do you want to hurt yourself or someone else? Patient reports no desire to harm self or others. Onset of symptoms was December 01, 2024. 07:08 Method Of Arrival: Ambulatory ss 07:08 Acuity: MEDINA 3 ss Historical: - Allergies: 07:22 No Known Allergies; ss - Home Meds: 07:22 None [Active]; ss - PMHx: 07:22 Pancreatitis; ss - PSHx: 07:22 None; ss - Immunization history:: Client reports having NOT received the Covid vaccine. - Infectious Disease History:: Denies. - Social history:: Smoking status: Reported history of juuling and/or vaping. Screenin:45 [facility] ED Fall Risk Assessment (Adult) History of falling in the last 3 months, hb including since admission No falls in past 3 months (0 pts) Confusion or Disorientation No (0 pts) Intoxicated or Sedated No (0 pts) Impaired Gait No (0 pts) Mobility Assist Device Used No (0 pt) Altered Elimination No (0 pt) Score/Fall Risk Level 0 - 2 = Low Risk Oriented to surroundings, Maintained a safe environment, Educated pt \T\ family on fall prevention, incl call for assistance when getting out of bed. Abuse screen: Denies threats or abuse. Denies injuries from another. Nutritional screening: No deficits noted. Tuberculosis screening: No symptoms or risk factors identified. Assessment: 07:45 General: Appears in no apparent distress. ill, Behavior is calm, cooperative. Pain: hb Pain currently is 8 out of 10 on a pain scale. Neuro: Level of Consciousness is awake, alert, obeys commands, Oriented to person, place, time, situation. Cardiovascular: Patient's skin is warm and dry. Respiratory: Reports pain with cough Respiratory effort is even, unlabored, Respiratory pattern is regular, symmetrical. GI: Reports nausea. : No signs and/or symptoms were reported regarding the genitourinary system. EENT: No signs and/or symptoms were reported regarding the EENT system. Derm: Skin is pink, warm \T\ dry. Musculoskeletal: Reports body aches, headache. 08:40 Reassessment: Patient appears in no apparent distress at this time. Patient and/or hb family updated on plan of care and expected duration. Pain level reassessed. Patient is alert, oriented x 3, equal unlabored respirations, skin warm/dry/pink. Vital Signs: 07:08 BP 138 / 101; Pulse 120; Resp 22; Temp 99.9(O); Pulse Ox 96% ; Weight 108.86 kg; Height ss 5 ft. 7 in. ; Pain 8/10; 08:05 BP 137 / 96; Pulse 105; ec2 08:28 BP 112 / 79; Pulse 102; Resp 18; Pulse Ox 95% ; ld1 08:30 BP 112 / 79; Pulse 98; ec2 08:36 Pulse 89; ec2 07:08 Body Mass Index 37.59 (108.86 kg, 170.18 cm) ss 07:08 Pain Scale: Adult ss ED Course: 07:07 Patient arrived in ED. ss 07:09 Hussein Milain MD is Attending Physician. ec2 07:22 Triage completed. ss 07:22 Arm band placed on right wrist. ss 07:43 Mallory Downs, CARMELO is Primary Nurse. hb 07:43 Initial lab(s) drawn, by me, sent to lab. COVID swab sent to lab. Flu and/or RSV swab hb sent to lab. Inserted saline lock: 20 gauge in right antecubital area, using aseptic technique. Blood collected. Flushed with 10 mL NS. 07:44 SARS RAPID Sent. hb 07:44 Influenza Screen (a \T\ B) Sent. hb 07:44 BMP Sent. hb 07:44 CBC with Diff Sent. hb 07:45 Patient has correct armband on for positive identification. Provided Education on: hb tests, result times, use of call light . Client placed on continuous cardiac and pulse oximetry monitoring. NIBP monitoring applied. Pulse ox on. NIBP on. 08:16 CXR XRAY In Process Unspecified. EDMS 08:48 No provider procedures requiring assistance completed. IV discontinued, intact, ld1 bleeding controlled, No redness/swelling at site. Administered Medications: 07:44 Drug: NS 0.9% IV 500 ml 500 ml IV at 1 bolus once; to be given as a bolus over 30 hb minutes Volume: 500 ml; Route: IV; Rate: 1 bolus; Site: right antecubital; 08:20 Follow up: Response: No adverse reaction; IV Status: Completed infusion; IV Intake: hb 500ml 07:45 Drug: Ketorolac IVP 15 mg IVP once Route: IVP; Site: right antecubital; hb 08:15 Follow up: Response: No adverse reaction hb 07:45 Drug: Tessalon Perle PO 200 mg PO once Route: PO; hb 08:40 Follow up: Response: No adverse reaction hb 07:45 Drug: Ondansetron IVP 4 mg IVP once; over 2 minutes Route: IVP; Site: right antecubital;hb 08:15 Follow up: Response: No adverse reaction hb 07:45 Drug: Acetaminophen PO 1000 mg PO once Route: PO; hb 08:45 Follow up: Response: No adverse reaction hb Medication: 07:45 VIS not applicable for this client. hb Intake: 08:20 IV: 500ml; Total: 500ml. hb Outcome: 08:39 Discharge ordered by . ec2 08:48 Discharged to home ambulatory, ld1 08:48 Condition: stable 08:48 Discharge instructions given to patient, Instructed on discharge instructions, follow up and referral plans. medication usage, Demonstrated understanding of instructions, follow-up care, medications, Prescriptions given X 2, 08:48 Patient left the ED. ld1 Signatures: Dispatcher [employer] EDMS Alejandra Rebollar RN RN Mallory Downs RN RN Marguerite Pereira RN RN ld1 Hussein Milian MD MD ec2
--- NOTE | 2024-12-04 08:40 | EDPHYS ---
Physician Documentation [facility] Name: Chai Hartley Age: 38 yrs Sex: Male : 1985 Arrival Date: 12/04/2024 Time: 07:05 Bed 8 Private MD: ED Physician Hussein Milian HPI: 12/04 07:35 This 38 yrs old Male presents to ER via Ambulatory with complaints of Painful ec2 Cough, Fever. 07:35 Patient arrives today for evaluation of upper respiratory symptoms. Reports that he is ec2 been having some nausea as well as diarrhea, decreased p.o. intake, body aches headaches as well as cough. Patient reports no vomiting. Patient reports no significant abdominal pain.. 07:36 Patient reports multiple sick contacts with similar symptoms.. ec2 Historical: - Allergies: 07:22 No Known Allergies; ss - Home Meds: 07:22 None [Active]; ss - PMHx: 07:22 Pancreatitis; ss - PSHx: 07:22 None; ss - Immunization history:: Client reports having NOT received the Covid vaccine. - Infectious Disease History:: Denies. - Social history:: Smoking status: Reported history of juuling and/or vaping. ROS: 07:35 Constitutional: as per hpi ec2 Exam: 07:35 Constitutional: GEN: NAD Head: atraumatic Eyes: EOMI Ears: External ears are ec2 normal. CV: Tachycardia LUNGS: no respiratory distress, no wheezes or rales or rhonchi ABD: non-distended SKIN: no evidence of rashes MSK: no evidence of trauma Vital Signs: 07:08 BP 138 / 101; Pulse 120; Resp 22; Temp 99.9(O); Pulse Ox 96% ; Weight 108.86 kg; Height ss 5 ft. 7 in. ; Pain 8/10; 08:05 BP 137 / 96; Pulse 105; ec2 08:28 BP 112 / 79; Pulse 102; Resp 18; Pulse Ox 95% ; ld1 08:30 BP 112 / 79; Pulse 98; ec2 08:36 Pulse 89; ec2 07:08 Body Mass Index 37.59 (108.86 kg, 170.18 cm) ss 07:08 Pain Scale: Adult ss MDM: 07:15 Medical Screening Exam initiated ec2 07:36 Data reviewed: vital signs, nurses notes. ED course: Patient arrives today for ec2 evaluation of upper respiratory symptoms. Examination yields slightly tachycardic individuals otherwise with a reassuring cardiopulmonary examination. Will obtain viral swabs, lab work, treat the patient's symptoms. Suspect viral infection.. 08:29 ED course: Influenza and covid negative. CXR independently reviewed and interpreted by ec2 me, shows no acute intrathoracic process.. 08:39 ED course: On reassessment patient objectively with improvement in vital signs. Will ec2 discharge home have the patient follow-up PCP, suspect of a viral infection. Return precautions given.. 12/04 07:24 Order name: CBC with Diff; Complete Time: 08:05 ec2 12/04 07:24 Order name: BMP; Complete Time: 08:22 ec2 12/04 07:24 Order name: Influenza Screen (a \T\ B); Complete Time: 08:28 ec2 12/04 07:24 Order name: SARS RAPID; Complete Time: 08:28 ec2 12/04 07:24 Order name: CXR XRAY; Complete Time: 08:28 ec2 12/04 07:24 Order name: IV; Complete Time: 07:44 ec2 Administered Medications: 07:44 Drug: NS 0.9% IV 500 ml 500 ml IV at 1 bolus once; to be given as a bolus over 30 hb minutes Volume: 500 ml; Route: IV; Rate: 1 bolus; Site: right antecubital; 08:20 Follow up: Response: No adverse reaction; IV Status: Completed infusion; IV Intake: hb 500ml 07:45 Drug: Ketorolac IVP 15 mg IVP once Route: IVP; Site: right antecubital; hb 08:15 Follow up: Response: No adverse reaction hb 07:45 Drug: Tessalon Perle PO 200 mg PO once Route: PO; hb 08:40 Follow up: Response: No adverse reaction hb 07:45 Drug: Ondansetron IVP 4 mg IVP once; over 2 minutes Route: IVP; Site: right antecubital;hb 08:15 Follow up: Response: No adverse reaction hb 07:45 Drug: Acetaminophen PO 1000 mg PO once Route: PO; hb 08:45 Follow up: Response: No adverse reaction hb Disposition Summary: 12/04/24 08:39 Discharge Ordered Notes: Location: Home ec2 Condition: Stable ec2 Diagnosis - Viral infection, unspecified ec2 - Hypo-osmolality and hyponatremia ec2 - Hypokalemia ec2 Followup: ec2 - With: Private Physician - When: - Reason: Re-evaluation by your physician Discharge Instructions: - Discharge Summary Sheet ec2 - Viral Illness, Adult ec2 Forms: - Work release form bd - Medication Reconciliation Form ec2 - Antibiotic Education ec2 - Prescription Opioid Use ec2 - Patient Portal Instructions ec2 - Leadership Thank You Letter ec2 Prescriptions: - Compazine 10 mg Oral Tablet - take 1 tablet ORAL route every 8 hours As needed; 10 tablet; Refills: 0, ec2 Product Selection Permitted - Tessalon Perles 100 mg Oral Capsule - take 1 capsule ORAL route every 8 hours As needed; 15 capsule; Refills: 0, ec2 Product Selection Permitted Signatures: Dispatcher [employer] Alejandra Mcbride RN RN ss Baxter, Heather, RN RN Hussein Milian MD MD ec2
[2024-12-04 09:03] VITALS: TEMP 99.9
[2024-12-04 09:14] VITALS: BP 112/79; O2SAT 95
== END 2024-12-04 08:48 | disposition home or self-care (01) ==
LOC: ER 07:05 → SUPCPDRO 07:05 → ER 08:48
DX: B34.9 Viral infection, unspecified (principal); R05.9 Cough, unspecified; F17.290 Nicotine dependence, other tobacco product, uncomplicated; R11.0 Nausea; R19.7 Diarrhea, unspecified; R51.9 Headache, unspecified; E87.6 Hypokalemia; E87.1 Hypo-osmolality and hyponatremia; Z11.52 Encounter for screening for COVID-19
CPT/HCPCS: 96361; 85025; 80048; 36415; 87804 ×2; 71045; 96375; 96374; 99284; 87811; J2405; J7040